=== PATIENT | female | born 1960 | race Caucasian/White ===

== ENCOUNTER → 2017-11-07 09:30 | Outpatient (CLI) | payer BC, SELFPAY ==
[2017-11-07 11:03] LABS: Protein, Urine (Random) 45.1 mg/dL (<11.9); Protein:Creat Ratio 646 mg/g CRE (0-200)
[2017-11-07 11:16] LABS: Magnesium 2.1 mg/dL (1.6-2.6)
[2017-11-07 11:30] LABS: PTHIN 96.7 pg/mL (18.4-80.1); Vitamin D,25 Hydroxy 36.9 ng/mL (29.95-100.01)
[2017-11-10 08:12] LABS: Sirolimus,Blood 7.3 ng/mL (3.0-20.0)
== END ==
PROVIDERS: Family Provider Family Medicine; PCP Family Medicine; Referring Provider Internal Medicine Nephrology; Visit Provider Internal Medicine Nephrology
DX: N18.4 Chronic kidney disease, stage 4 (severe) (principal); Z48.22 Encounter for aftercare following kidney transplant
CPT/HCPCS: 36415; 80195; 82306; 82570; 83735; 83970; 84156

== ENCOUNTER → 2017-12-19 08:19 | Outpatient (CLI) | payer BC, SELFPAY ==
[2017-12-19 09:48] LABS: Absolute Lymphocyte Count 1.02 X10^3/ul (0.83-4.51); Absolute Neutrophil Count 2.8 X10^3/uL (2.0-7.7); Basophil# 0.01 X10^3/uL; Basophil% 0.2 % (0-1); Eosinophil# 0.11 X10^3/uL; Eosinophils% 2.4 % (0-5); Hematocrit 36.6 % (37-47); Hemoglobin 11.3 g/dl (12.0-15.0); Lymphocyte # 1.02 X10^3/ul (4.0); Lymphocyte % 22.4 % (19-41); Mean Corp Hgb Conc 30.9 g/gl (32-36); Mean Corpuscular Hgb 25.9 pg (27.0-32.0); Mean Corpuscular Volume 83.8 fL (81-99); Mean Platelet Vol. 11.6 fl (6.2-12.0); Monocyte# 0.64 X10^3/uL; Neutrophil # 2.77 X10^3/uL (2.7-7.7); Neutrophil % 60.8 % (47-70); Platelet Count 168 K/mm3 (150-450); RBC Distribution Width CV 14.8 % (11.6-14.6); RBC Distribution Width SD 44.2 fl (35.1-43.9); Red Blood Count 4.37 M/mm3 (4.2-5.4); White Blood Count 4.6 K/mm3 (4.4-11.0)
[2017-12-19 09:51] LABS: POSITIVE COUNT NO; POSITIVE DIFFERENTIAL NO; POSITIVE MORPHOLOGY NO
[2017-12-19 10:24] LABS: ALB/GLOB Ratio 0.7 RATIO (0.9-2.4); AST(SGOT) 26 U/L (15-37); Alanine Aminotransfer ALT/SGPT 31 U/L (13-56); Albumin, Serum 3.4 g/dL (3.2-5.0); Alkaline Phosphatase 102 U/L (45-117); Anion Gap 10 (5-15); BUN 36 mg/dL (7-18); Calcium,Total 8.8 mg/dL (8.5-10.1); Chloride 108 mmol/L (98-107); Creatinine, Serum 2.76 mg/dL (0.55-1.02); EST Glomerular Filtration Rate 19 mL/min (>60); Est Glom Filt Rate - Afr Amer 23 mL/min (>60); Globulin 4.6 g/dL (2.2-4.2); Glucose 132 mg/dL (74-106); Potassium 4.4 mmol/L (3.5-5.1); Sodium Level 141 mmol/L (136-145); Uric Acid 5.9 mg/dL (2.6-6.0)
== END ==
PROVIDERS: Family Provider Family Medicine; PCP Family Medicine; Referring Provider Internal Medicine Nephrology; Visit Provider Internal Medicine Nephrology
DX: N18.4 Chronic kidney disease, stage 4 (severe) (principal); R60.0 Localized edema
CPT/HCPCS: 36415; 80053; 84550; 85025

== ENCOUNTER → 2018-03-17 08:13 | Outpatient (CLI) | payer BC, SELFPAY ==
[2017-01-20 15:31] VITALS: BMI 41.5
[2018-03-17 09:09] LABS: Absolute Lymphocyte Count 0.93 X10^3/ul (0.83-4.51); Absolute Neutrophil Count 1.9 X10^3/uL (2.0-7.7); Basophil# 0.01 X10^3/uL; Basophil% 0.3 % (0-1); Eosinophil# 0.14 X10^3/uL; Eosinophils% 4.3 % (0-5); Hematocrit 37.5 % (37-47); Hemoglobin 11.5 g/dl (12.0-15.0); Lymphocyte # 0.93 X10^3/ul (4.0); Lymphocyte % 28.4 % (19-41); Mean Corp Hgb Conc 30.7 g/gl (32-36); Mean Corpuscular Hgb 26.4 pg (27.0-32.0); Mean Platelet Vol. 10.6 fl (6.2-12.0); Monocyte# 0.32 X10^3/uL; Monocyte% 9.8 % (0-10); Neutrophil # 1.87 X10^3/uL (2.7-7.7); Neutrophil % 57.2 % (47-70); POSITIVE COUNT NO; POSITIVE DIFFERENTIAL NO; POSITIVE MORPHOLOGY NO; Platelet Count 143 K/mm3 (150-450); RBC Distribution Width SD 47.2 fl (35.1-43.9); Red Blood Count 4.36 M/mm3 (4.2-5.4); White Blood Count 3.3 K/mm3 (4.4-11.0)
[2018-03-17 09:44] LABS: ALB/GLOB Ratio 0.9 RATIO (0.9-2.4); AST(SGOT) 18 U/L (15-37); Alanine Aminotransfer ALT/SGPT 24 U/L (13-56); Albumin, Serum 3.4 g/dL (3.2-5.0); Alkaline Phosphatase 78 U/L (45-117); Anion Gap 7 (5-15); BUN 37 mg/dL (7-18); BUN/Creat Ratio 15.1 RATIO (10-20); Calcium,Total 8.7 mg/dL (8.5-10.1); Chloride 112 mmol/L (98-107); Creatinine, Serum 2.45 mg/dL (0.55-1.02); EST Glomerular Filtration Rate 22 mL/min (>60); Est Glom Filt Rate - Afr Amer 26 mL/min (>60); Globulin 3.9 g/dL (2.2-4.2); Glucose 104 mg/dL (74-106); Potassium 5.1 mmol/L (3.5-5.1); Protein, Total 7.3 g/dL (6.4-8.2); Sodium Level 144 mmol/L (136-145); Uric Acid 6.5 mg/dL (2.6-6.0)
[2018-03-20 08:49] LABS: Sirolimus,Blood 11.4 ng/mL (3.0-20.0)
== END ==
PROVIDERS: Family Provider Family Medicine; PCP Family Medicine; Referring Provider Internal Medicine Nephrology; Visit Provider Internal Medicine Nephrology
DX: N18.4 Chronic kidney disease, stage 4 (severe) (principal); R60.0 Localized edema; Z48.22 Encounter for aftercare following kidney transplant
CPT/HCPCS: 36415; 80053; 80195; 84550; 85025

== ENCOUNTER 2018-04-23 06:26 | Emergency (ER) | payer BC, SELFPAY ==
[2018-04-23 06:27] VITALS: BP 153/80; PULSE 70; RESP 18; TEMP 37.4; O2SAT 94; BMI 92.7
--- NOTE | 2018-04-23 06:54 | RAD_ITS ---
STUDY: X-RAY CHEST REASON FOR EXAM: Female, 57 years old. Fever since Monday with reactive airway disease and productive cough. TECHNIQUE: PA and lateral views of the chest. COMPARISON: January 20, 2017. FINDINGS: The lungs are expanded. There is interstitial thickening present in both lungs. There is no demonstrated pleural abnormality. Normal size heart. Normal mediastinum and reta. Normal visualized pulmonary arteries. There is atherosclerotic tortuosity of the aortic arch and descending thoracic aorta. Normal visualized thoracic spine. There is deformity of the posterolateral eighth rib probably related to old fracture. Surgical clips are visible in right upper quadrant. RAD/Chest PA and Lateral IMPRESSION: No radiographic evidence of acute cardiopulmonary disease. Electronically Signed: Emily Cowan MD at 9:00 EDT , Service support ,
--- NOTE | 2018-04-23 06:54 | ED.VISSUMM ---
- ER Visit Summary Date of Service: 04/23/18 Chief Complaint: Fever History of Present Illness: The patient is a 57 F who presents with a fever and cough that has been getting worse over the past 2 days. Patient states she is coughing up some yellow sputum. Patient states her fever at home was up to 102.1. Patient states it improved with Tylenol but then returned after couple hours. Patient admits to some pain across her chest that is worse with coughing. Patient denies any nausea or vomiting. Patient does admit to a headache. Patient has a past medical history of renal transplant in 1998. Patient still takes antirejection medications. Physical Examination: Vital signs are stable. Patient is afebrile here with a temperature 99.4. Patient is in no acute distress. Oral mucosa is pink and moist. Oropharynx is clear. Pupils are equal, round, and reactive to light bilaterally. Extraocular muscles are intact. Tympanic membranes are clear. Heart was regular rate and rhythm. Lungs showed expiratory rhonchi. There is good respiratory effort noted. Abdomen is soft. Bowel sounds are normal. There is no tenderness. Cranial nerves II through XII are intact. There are no focal motor or sensory deficits noted. The remaining physical exam is within normal limits. Test Results: CBC, basic metabolic profile, urinalysis, and chest x-ray were obtained. CBC was normal. Basic metabolic profile showed an elevated BUN and creatinine which are chronic for the patient. Urinalysis is pending. Chest x-ray does not show any evidence of pneumonia on my interpretation. Influenza swab was ordered and is pending as well. Emergency Department Course and Treatment: Patient was given a DuoNeb aerosol here. Patient was given a prescription for Zithromax. Care of the patient was turned over to the oncoming physician with results pending. Disposition: Likely discharge home Impression: Upper respiratory infection This note was generated with [employer] dictation software. It may contain incorrect words, spelling, and punctuation that were not noted in review of the chart prior to signing ED Disposition - Plan for ED Patient: Disposition: Home or Assisted Living Diagnosis: Upper respiratory infection Instructions: ED Upper Resp Infec Abx Tx Prescriptions: Azithromycin [Zithromax Z-Dom] 250 mg PO UD #1 box Referrals: Funmi Siu [Primary Care Provider] -
--- NOTE | 2018-04-23 06:59 | ED.DCSUM_ITS ---
- ER Visit Summary Date of Service: 04/23/18 Chief Complaint: Fever History of Present Illness: The patient is a 57 F who presents with a fever and cough that has been getting worse over the past 2 days. Patient states she is coughing up some yellow sputum. Patient states her fever at home was up to 102.1. Patient states it improved with Tylenol but then returned after couple hours. Patient admits to some pain across her chest that is worse with coughing. Patient denies any nausea or vomiting. Patient does admit to a headache. Patient has a past medical history of renal transplant in 1998. Patient still takes antirejection medications. Physical Examination: Vital signs are stable. Patient is afebrile here with a temperature 99.4. Patient is in no acute distress. Oral mucosa is pink and moist. Oropharynx is clear. Pupils are equal, round, and reactive to light b ilaterally. Extraocular muscles are intact. Tympanic membranes are clear. Heart was regular rate and rhythm. Lungs showed expiratory rhonchi. There is good respiratory effort noted. Abdomen is soft. Bowel sounds are normal. There is no tenderness. Cranial nerves II through XII are intact. There are no focal motor or sensory deficits noted. The remaining physical exam is within normal limits. Test Results: CBC, basic metabolic profile, urinalysis, and chest x-ray were obtained. CBC was normal. Basic metabolic profile showed an elevated BUN and creatinine which are chronic for the patient. Urinalysis is pending. Chest x- ray does not show any evidence of pneumonia on my interpretation. Influenza swab was ordered and is pending as well. Emergency Department Course and Treatment: Patient was given a DuoNeb aerosol here. Patient was given a prescription for Zithromax. Care of the patient was turned over to the oncoming physician with results pending. Disposition: Likely discharge home Impression: Upper respiratory infection This note was generated with [employer] dictation software. It may contain incorrect words, spelling, and punctuation that were not noted in review of the chart prior to signing ED Disposition - Plan for ED Patient: Disposition: Home or Assisted Living Diagnosis: Upper respiratory infection Instructions: ED Upper Resp Infec Abx Tx Prescriptions: Azithromycin [Zithromax Z-Dom] 250 mg PO UD #1 box Referrals: Funmi Siu [Primary Care Provider] -
[2018-04-23 07:09] VITALS: PULSE 78; RESP 18
[2018-04-23] MEDS: Ipratropium/Albuterol Sulfate 3 ML AMPUL.NEB INHALATION (07:09)
[2018-04-23 07:47] LABS: Absolute Lymphocyte Count 1.63 X10^3/ul (0.83-4.51); Absolute Neutrophil Count 2.9 X10^3/uL (2.0-7.7); Basophil# 0.01 X10^3/uL; Basophil% 0.2 % (0-1); Hematocrit 38.5 % (37-47); Hemoglobin 12.4 g/dl (12.0-15.0); Lymphocyte # 1.63 X10^3/ul (4.0); Lymphocyte % 31.2 % (19-41); Mean Corp Hgb Conc 32.2 g/gl (32-36); Mean Corpuscular Hgb 27.1 pg (27.0-32.0); Mean Corpuscular Volume 84.1 fL (81-99); Mean Platelet Vol. 11.1 fl (6.2-12.0); Monocyte# 0.72 X10^3/uL; Monocyte% 13.8 % (0-10); Neutrophil # 2.85 X10^3/uL (2.7-7.7); Neutrophil % 54.6 % (47-70); Platelet Count 138 K/mm3 (150-450); RBC Distribution Width CV 14.1 % (11.6-14.6); RBC Distribution Width SD 42.5 fl (35.1-43.9); Red Blood Count 4.58 M/mm3 (4.2-5.4); White Blood Count 5.2 K/mm3 (4.4-11.0)
[2018-04-23 07:50] LABS: POSITIVE COUNT NO; POSITIVE DIFFERENTIAL NO; POSITIVE MORPHOLOGY NO
[2018-04-23 07:57] LABS: Anion Gap 9 (5-15); BUN 49 mg/dL (7-18); BUN/Creat Ratio 17.3 RATIO (10-20); Calcium,Total 8.8 mg/dL (8.5-10.1); Chloride 107 mmol/L (98-107); Creatinine, Serum 2.84 mg/dL (0.55-1.02); EST Glomerular Filtration Rate 18 mL/min (>60); Est Glom Filt Rate - Afr Amer 22 mL/min (>60); Estimated Creatinine Clearance 18.87 ml/min; Glucose 110 mg/dL (74-106); Potassium 3.5 mmol/L (3.5-5.1); Sodium Level 135 mmol/L (136-145)
[2018-04-23 08:12] LABS: Mucous, Urine 0 SEEN /hpf (<or=2+); Squamous Epithelial Cells - UA 0 SEEN /hpf (5-10)
[2018-04-23 08:13] LABS: Color, Urine Yellow (Yellow); Glucose, Dipstick Normal (Normal); Ketone-Dipstick Negative (Negative); Leukocyte Esterase-Dipstick 500 /ul (Negative); Nitrite-Dipstick Positive (Negative); Occult Blood-Urine 25 /ul (Negative); Protein-Dipstick 30 mg/dl (Negative); Urine Bilirubin Dipstick Negative (Negative); Urine Clarity Sl. Cloudy (Clear); Urine Urobilinogen Normal (Normal)
[2018-04-23 08:21] LABS: Bacteria 1+ /hpf (None Seen); Red Blood Cells-Urine 0-5 SEEN /hpf (0-5); White Blood Cells 25-50 SEEN /hpf (0-5)
--- NOTE | 2018-04-23 08:49 | ED.VISSUMM ---
- ER Visit Summary Date of Service: 04/23/18 Chief Complaint: [Addendum to initial dictation by Dr. Isac Prakash] History of Present Illness: The patient is a 57 F [resented with fever times 3 days and cough that started yesterday. Patient seen in the emergency department and had blood work that was unremarkable. Patient is a renal transplant patient and is immunosuppressed. Patient care turned over to me in the morning awaiting final results of chest x-ray and urinalysis. It was felt by ER doctor that chest x-ray was unremarkable.] Physical Examination: [HEENT-PERRLA, EOMI. Cranial nerves II through XII grossly intact. TMs clear. Mucous membranes moist. No adenopathy. Cardiovascular-regular rate and rhythm without murmur or ectopy Lungs-clear to auscultation, chest wall stable without crepitus or subcu emphysema Abdomen-normoactive bowel sounds, soft, nontender, no rebound or rigidity, no peritoneal signs. Extremities-intact ?4, normal range of motion, normal pulses, atraumatic] Test Results: [Influenza screen was positive for influenza A. Urinalysis was positive for nitrites, leukocyte esterase, and 25-50 WBCs.] Emergency Department Course and Treatment: [Patient was started on Tamiflu as well as given 1 g Rocephin IV.] Treatment Plan: [Patient will be given a prescription for Tamiflu as well as Bactrim and I will discontinue the Zithromax at the previous ER physician wrote for.] Disposition: [Discharged home in stable condition] Impression: [Influenza A Urinary tract infection] This note was generated with [employer] dictation software. It may contain incorrect words, spelling, and punctuation that were not noted in review of the chart prior to signing ED Disposition - Plan for ED Patient: Disposition: Home or Assisted Living Diagnosis: Upper respiratory infection Instructions: ED Upper Resp Infec Abx Tx Prescriptions: Azithromycin [Zithromax Z-Dom] 250 mg PO UD #1 box Referrals: Funmi Siu [Primary Care Provider] -
--- NOTE | 2018-04-23 08:53 | ED.DEP ---
ED Disposition - Plan for ED Patient: Disposition: Home or Assisted Living Diagnosis: Upper respiratory infection Instructions: ED Upper Resp Infec Abx Tx, ED Flu, ED UTI Cystitis Female Prescriptions: Azithromycin [Zithromax Z-Dom] 250 mg PO UD #1 box Oseltamivir Phosphate [Tamiflu] 75 mg PO BID #9 cap Smz/Tmp Ds [Bactrim Ds] 1 tab PO BID #14 tab Referrals: Funmi Siu [Primary Care Provider] - 3-5 Days
[2018-04-23] MEDS: Ceftriaxone 1 GM/50 ML BAG IV (09:15)
[2018-04-23] MEDS: Oseltamivir Phosphate 75 MG Capsule PO (09:15)
[2018-04-23 09:17] VITALS: BP 150/75; PULSE 76; RESP 24; O2SAT 94
== END 2018-04-23 10:23 | disposition home or self-care (01) ==
PROVIDERS: Emergency Provider Emergency Medicine; Family Provider Family Medicine; PCP Family Medicine
DX: J09.X2 Influenza due to identified novel influenza A virus with other respiratory manifestations (principal); N39.0 Urinary tract infection, site not specified; J06.9 Acute upper respiratory infection, unspecified; Z94.0 Kidney transplant status; E66.9 Obesity, unspecified; Z79.899 Other long term (current) drug therapy
CPT/HCPCS: 71046; 80048; 81001; 85025; 87086; 87088; 87186; 87804; 94640; 96365; 99284; J7030; J7050; A4216

== ENCOUNTER → 2018-09-11 | Outpatient (CLI) | payer BC, SELFPAY ==
[2018-09-11 08:58] LABS: Absolute Lymphocyte Count 0.91 X10^3/uL (0.83-4.51); Absolute Neutrophil Count 2.1 X10^3/uL (2.0-7.7); Basophil# 0.01 X10^3/uL; Basophil% 0.3 % (0-1); Eosinophil# 0.13 X10^3/uL; Eosinophils% 3.7 % (0-5); Hematocrit 36.5 % (37-47); Hemoglobin 11.2 g/dL (12.0-15.0); Lymphocyte # 0.91 X10^3/ul (4.0); Lymphocyte % 26.2 % (19-41); Mean Corp Hgb Conc 30.7 g/dL (32-36); Mean Corpuscular Hgb 25.9 pg (27.0-32.0); Mean Corpuscular Volume 84.5 fL (81-99); Mean Platelet Vol. 11.8 fl (6.2-12.0); Monocyte# 0.31 X10^3/uL; Monocyte% 8.9 % (0-10); NRBC Flagged by Analyzer 0 % (0-5); Neutrophil % 60.6 % (47-70); Platelet Count 162 K/mm3 (150-450); RBC Distribution Width CV 14.6 % (11.6-14.6); RBC Distribution Width SD 44.9 fl (35.1-43.9); Red Blood Count 4.32 M/mm3 (4.2-5.4); White Blood Count 3.5 K/mm3 (4.4-11.0)
[2018-09-11 09:13] LABS: Protein, Urine (Random) 46.5 mg/dL (<11.9)
[2018-09-11 09:30] LABS: ALB/GLOB Ratio 0.8 RATIO (0.9-2.4); AST(SGOT) 15 U/L (15-37); Alanine Aminotransfer ALT/SGPT 18 U/L (13-56); Albumin, Serum 3.6 g/dL (3.2-5.0); Alkaline Phosphatase 91 U/L (45-117); Anion Gap 9 (5-15); BUN 44 mg/dL (7-18); BUN/Creat Ratio 15.7 RATIO (10-20); Calcium,Total 9.2 mg/dL (8.5-10.1); Chloride 111 mmol/L (98-107); EST Glomerular Filtration Rate 18 mL/min (>60); Est Glom Filt Rate - Afr Amer 22 mL/min (>60); Globulin 4.3 g/dL (2.2-4.2); Glucose 102 mg/dL (74-106); Magnesium 2.3 mg/dL (1.6-2.6); Potassium 4.1 mmol/L (3.5-5.1); Protein, Total 7.9 g/dL (6.4-8.2); Sodium Level 145 mmol/L (136-145)
[2018-09-11 09:42] LABS: Vitamin D,25 Hydroxy 40.5 ng/mL (29.95-100.01)
[2018-09-11 10:10] LABS: PTHIN 91.2 pg/mL (18.4-80.1)
[2018-09-13 15:56] LABS: Sirolimus,Blood 10.6 ng/mL (3.0-20.0)
== END | disposition home or self-care (01) ==
PROVIDERS: Family Provider Family Medicine; PCP Family Medicine; Referring Provider Internal Medicine Nephrology; Visit Provider Internal Medicine Nephrology
DX: N18.4 Chronic kidney disease, stage 4 (severe) (principal); J18.9 Pneumonia, unspecified organism; Z48.22 Encounter for aftercare following kidney transplant
CPT/HCPCS: 36415; 80053; 80195; 82306; 82570; 83735; 83970; 84100; 84156; 85025

== ENCOUNTER → 2019-02-26 07:14 | Outpatient (CLI) | payer BC, SELFPAY ==
[2019-02-26 07:48] LABS: Absolute Lymphocyte Count 0.87 X10^3/uL (0.83-4.51); Absolute Neutrophil Count 2.5 X10^3/uL (2.0-7.7); Basophil# 0.02 X10^3/uL; Basophil% 0.5 % (0-1); Lymphocyte # 0.87 X10^3/ul (4.0); Lymphocyte % 21.9 % (19-41); Mean Corp Hgb Conc 30.6 g/dL (32-36); Mean Corpuscular Hgb 25.5 pg (27.0-32.0); Mean Corpuscular Volume 83.3 fL (81-99); Mean Platelet Vol. 11.1 fl (6.2-12.0); Monocyte# 0.35 X10^3/uL; Monocyte% 8.8 % (0-10); NRBC Flagged by Analyzer 0 % (0-5); Neutrophil # 2.52 X10^3/uL (2.7-7.7); Neutrophil % 63.5 % (47-70); Platelet Count 171 K/mm3 (150-450); RBC Distribution Width CV 15.7 % (11.6-14.6); RBC Distribution Width SD 47.4 fl (35.1-43.9); Red Blood Count 4.32 M/mm3 (4.2-5.4)
[2019-02-26 08:08] LABS: Protein, Urine (Random) 62.7 mg/dL (<11.9)
[2019-02-26 08:24] LABS: ALB/GLOB Ratio 0.8 RATIO (0.9-2.4); AST(SGOT) 14 U/L (15-37); Alanine Aminotransfer ALT/SGPT 20 U/L (13-56); Albumin, Serum 3.4 g/dL (3.2-5.0); Alkaline Phosphatase 79 U/L (45-117); Anion Gap 4 (5-15); BUN 42 mg/dL (7-18); BUN/Creat Ratio 13.4 RATIO (10-20); Calcium,Total 8.5 mg/dL (8.5-10.1); Chloride 110 mmol/L (98-107); Creatinine, Serum 3.13 mg/dL (0.55-1.02); EST Glomerular Filtration Rate 16 mL/min (>60); Est Glom Filt Rate - Afr Amer 20 mL/min (>60); Ferritin 50 ng/mL (8-252); Globulin 4.1 g/dL (2.2-4.2); Glucose 114 mg/dL (74-106); Iron 42 ug/dL (50-170); Iron Binding Capacity,Total 246 ug/dL (250-450); Magnesium 2.4 mg/dL (1.6-2.6); PERCENT IRON SATURATION 17.1 % (15.0-55.0); Potassium 3.8 mmol/L (3.5-5.1); Protein, Total 7.5 g/dL (6.4-8.2); Sodium Level 140 mmol/L (136-145)
[2019-02-26 08:27] LABS: PTHIN 174.9 pg/mL (18.4-80.1); Vitamin D,25 Hydroxy 46.6 ng/mL (29.95-100.01)
[2019-02-27 20:54] LABS: Sirolimus,Blood 11.9 ng/mL (3.0-20.0)
== END ==
PROVIDERS: Family Provider Family Medicine; PCP Family Medicine; Referring Provider Internal Medicine Nephrology; Visit Provider Internal Medicine Nephrology
DX: N18.4 Chronic kidney disease, stage 4 (severe) (principal); D64.9 Anemia, unspecified; Z48.22 Encounter for aftercare following kidney transplant
CPT/HCPCS: 36415; 80053; 80195; 82306; 82570; 82728; 83540; 83550; 83735; 83970; 84156; 85025

== ENCOUNTER → 2019-05-14 09:06 | Outpatient (CLI) | payer BC, SELFPAY ==
[2019-05-14 10:23] LABS: Absolute Neutrophil Count 2.8 X10^3/uL (2.0-7.7); Basophil# 0.02 X10^3/uL; Basophil% 0.5 % (0-1); Eosinophil# 0.07 X10^3/uL; Eosinophils% 1.7 % (0-5); Hematocrit 36.7 % (37-47); Hemoglobin 11.7 g/dL (12.0-15.0); Lymphocyte % 21.8 % (19-41); Mean Corp Hgb Conc 31.9 g/dL (32-36); Mean Corpuscular Hgb 27.1 pg (27.0-32.0); Mean Platelet Vol. 10.9 fl (6.2-12.0); Monocyte# 0.35 X10^3/uL; Monocyte% 8.5 % (0-10); NRBC Flagged by Analyzer 0 % (0-5); Neutrophil # 2.77 X10^3/uL (2.7-7.7); Neutrophil % 67.3 % (47-70); Platelet Count 154 K/mm3 (150-450); RBC Distribution Width CV 15.2 % (11.6-14.6); Red Blood Count 4.32 M/mm3 (4.2-5.4); White Blood Count 4.1 K/mm3 (4.4-11.0)
[2019-05-14 10:47] LABS: ALB/GLOB Ratio 0.9 RATIO (0.9-2.4); AST(SGOT) 16 U/L (15-37); Alanine Aminotransfer ALT/SGPT 17 U/L (13-56); Albumin, Serum 3.8 g/dL (3.2-5.0); Alkaline Phosphatase 81 U/L (45-117); Anion Gap 6 (5-15); BUN 43 mg/dL (7-18); BUN/Creat Ratio 13.2 RATIO (10-20); Calcium,Total 9.2 mg/dL (8.5-10.1); Chloride 106 mmol/L (98-107); Creatinine, Serum 3.25 mg/dL (0.55-1.02); EST Glomerular Filtration Rate 16 mL/min (>60); Est Glom Filt Rate - Afr Amer 19 mL/min (>60); Globulin 4.2 g/dL (2.2-4.2); Glucose 115 mg/dL (74-106); Magnesium 2.3 mg/dL (1.6-2.6); Phosphorus 3.3 mg/dL (2.5-4.9); Sodium Level 140 mmol/L (136-145)
== END ==
PROVIDERS: Referring Provider Internal Medicine Nephrology; Visit Provider Internal Medicine Nephrology
DX: Z48.22 Encounter for aftercare following kidney transplant (principal)
CPT/HCPCS: 36415; 80053; 83735; 84100; 85025

== ENCOUNTER → 2019-06-18 08:03 | Outpatient (CLI) | payer BC, SELFPAY ==
[2019-06-18 08:58] LABS: Absolute Lymphocyte Count 0.92 X10^3/uL (0.83-4.51); Absolute Neutrophil Count 2.8 X10^3/uL (2.0-7.7); Basophil# 0.01 X10^3/uL; Basophil% 0.2 % (0-1); Eosinophil# 0.13 X10^3/uL; Eosinophils% 3.1 % (0-5); Hematocrit 35.1 % (37-47); Hemoglobin 10.7 g/dL (12.0-15.0); Lymphocyte # 0.92 X10^3/ul (4.0); Lymphocyte % 21.8 % (19-41); Mean Corp Hgb Conc 30.5 g/dL (32-36); Mean Corpuscular Hgb 26.6 pg (27.0-32.0); Mean Corpuscular Volume 87.3 fL (81-99); Mean Platelet Vol. 11.2 fl (6.2-12.0); Monocyte# 0.39 X10^3/uL; Monocyte% 9.2 % (0-10); NRBC Flagged by Analyzer 0 % (0-5); Neutrophil # 2.76 X10^3/uL (2.7-7.7); Neutrophil % 65.5 % (47-70); Platelet Count 146 K/mm3 (150-450); RBC Distribution Width CV 15.3 % (11.6-14.6); RBC Distribution Width SD 48.7 fl (35.1-43.9); Red Blood Count 4.02 M/mm3 (4.2-5.4); White Blood Count 4.2 K/mm3 (4.4-11.0)
[2019-06-18 09:25] LABS: PTHIN 174.6 pg/mL (18.4-80.1)
[2019-06-18 09:29] LABS: ALB/GLOB Ratio 0.9 RATIO (0.9-2.4); AST(SGOT) 16 U/L (15-37); Alanine Aminotransfer ALT/SGPT 18 U/L (13-56); Albumin, Serum 3.5 g/dL (3.2-5.0); Alkaline Phosphatase 80 U/L (45-117); Anion Gap 3 (5-15); BUN 39 mg/dL (7-18); BUN/Creat Ratio 13.7 RATIO (10-20); Calcium,Total 8.6 mg/dL (8.5-10.1); Chloride 115 mmol/L (98-107); Creatinine, Serum 2.85 mg/dL (0.55-1.02); EST Glomerular Filtration Rate 18 mL/min (>60); Est Glom Filt Rate - Afr Amer 22 mL/min (>60); Glucose 98 mg/dL (74-106); Magnesium 2.4 mg/dL (1.6-2.6); Phosphorus 3.3 mg/dL (2.5-4.9); Potassium 4.5 mmol/L (3.5-5.1); Protein, Total 7.5 g/dL (6.4-8.2); Sodium Level 143 mmol/L (136-145)
[2019-06-18 09:30] LABS: Vitamin D,25 Hydroxy 50.8 ng/mL
[2019-06-18 10:12] LABS: Protein, Urine (Random) 36.9 mg/dL (<11.9); Protein:Creat Ratio 501 mg/g CRE (0-200)
[2019-06-21 00:41] LABS: Sirolimus,Blood 10.7 ng/mL (3.0-20.0)
== END ==
PROVIDERS: PCP Internal Medicine Nephrology; Referring Provider Internal Medicine Nephrology; Visit Provider Internal Medicine Nephrology
DX: N18.4 Chronic kidney disease, stage 4 (severe) (principal); Z48.22 Encounter for aftercare following kidney transplant
CPT/HCPCS: 36415; 80053; 80195; 82306; 82570; 83735; 83970; 84100; 84156; 85025

== ENCOUNTER → 2019-08-23 08:26 | Outpatient (CLI) | payer BC, SELFPAY ==
[2019-08-23 08:53] LABS: Absolute Lymphocyte Count 1.36 X10^3/uL (0.83-4.51); Absolute Neutrophil Count 4.2 X10^3/uL (2.0-7.7); Basophil# 0.01 X10^3/uL; Basophil% 0.2 % (0-1); Eosinophil# 0.15 X10^3/uL; Eosinophils% 2.4 % (0-5); Hematocrit 35.6 % (37-47); Hemoglobin 11.1 g/dL (12.0-15.0); Lymphocyte # 1.36 X10^3/ul (4.0); Lymphocyte % 21.6 % (19-41); Mean Corp Hgb Conc 31.2 g/dL (32-36); Mean Corpuscular Hgb 26.7 pg (27.0-32.0); Mean Corpuscular Volume 85.8 fL (81-99); Mean Platelet Vol. 11.2 fl (6.2-12.0); Monocyte% 9.5 % (0-10); NRBC Flagged by Analyzer 0 % (0-5); Neutrophil # 4.17 X10^3/uL (2.7-7.7); Platelet Count 177 K/mm3 (150-450); RBC Distribution Width CV 15.4 % (11.6-14.6); RBC Distribution Width SD 47.2 fl (35.1-43.9); Red Blood Count 4.15 M/mm3 (4.2-5.4); White Blood Count 6.3 K/mm3 (4.4-11.0)
[2019-08-23 09:22] LABS: ALB/GLOB Ratio 0.8 RATIO (0.9-2.4); AST(SGOT) 17 U/L (15-37); Alanine Aminotransfer ALT/SGPT 31 U/L (13-56); Albumin, Serum 3.3 g/dL (3.2-5.0); Alkaline Phosphatase 87 U/L (45-117); Anion Gap 7 (5-15); BUN 28 mg/dL (7-18); BUN/Creat Ratio 9.8 RATIO (10-20); Calcium,Total 8.7 mg/dL (8.5-10.1); Chloride 107 mmol/L (98-107); Creatinine, Serum 2.87 mg/dL (0.55-1.02); EST Glomerular Filtration Rate 18 mL/min (>60); Est Glom Filt Rate - Afr Amer 22 mL/min (>60); Globulin 4.2 g/dL (2.2-4.2); Glucose 155 mg/dL (74-106); Magnesium 2.2 mg/dL (1.6-2.6); Phosphorus 2.4 mg/dL (2.5-4.9); Potassium 3.7 mmol/L (3.5-5.1); Protein, Total 7.5 g/dL (6.4-8.2); Sodium Level 140 mmol/L (136-145); Uric Acid 7.7 mg/dL (2.6-6.0)
[2019-08-23 09:32] LABS: PTHIN 131.9 pg/mL (18.4-80.1)
[2019-08-23 09:49] LABS: Vitamin D,25 Hydroxy 53.7 ng/mL
[2019-08-27 00:36] LABS: Sirolimus,Blood 22.6 ng/mL (3.0-20.0)
== END ==
PROVIDERS: PCP Family Medicine; Referring Provider Internal Medicine Nephrology; Visit Provider Internal Medicine Nephrology
DX: Z48.22 Encounter for aftercare following kidney transplant (principal); N18.4 Chronic kidney disease, stage 4 (severe); E79.0 Hyperuricemia without signs of inflammatory arthritis and tophaceous disease
CPT/HCPCS: 36415; 80053; 80195; 82306; 83735; 83970; 84100; 84550; 85025

== ENCOUNTER 2019-10-24 07:56 | Emergency (ER) | payer OTHER, BC, SELFPAY ==
[2019-10-24 07:57] VITALS: BP 150/79; PULSE 65; RESP 16; TEMP 36.8; O2SAT 96; BMI 42.9
--- NOTE | 2019-10-24 08:03 | ED.VIS.GEN ---
History of Present Illness Chief Complaint: Fall Informant: Patient Onset: Today Context: Sudden Onset Timing: Continuous Current Severity: Moderate Maximum Severity: Severe Narrative: The patient is a 59-year-old female who is right-hand dominant that presents to the emergency department after mechanical fall. 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 She tripped over a cord and fell forward. She caught herself with an outstretched right hand, and then landed on her left hip and knee. She did not strike her head. She denies loss of consciousness. She states the bulk of her pain is in her right wrist. The patient does have history of prior kidney transplant and is on Rapamune. She denies any recent infectious symptoms. Prior similar symptoms: No Recent Illness/Hospitalization: No Past Medical History - Allergies and Home Meds Allergies/Adverse Reactions: Allergies venlafaxine HCl [From Effexor] Adverse Reaction (Verified 10/24/19 07:57) Other Primary Care Physician: Lior Garber DO [STAFF PHYSICIAN] - 3-5 Days Prior records reviewed: Yes Past Medical History: - - Prior kidney transplant, depression Surgical History: noncontributory Smoking Status: Never smoker Review of Systems General: Denies: Chills, Fever, Sweats Eyes: Denies: Visual changes - bilaterally, Diplopia ENT: Denies: Rhinorrhea, Sore throat Cardiovascular: Denies: Chest pain, Palpitations Respiratory: Denies: Dyspnea, Cough, Dyspnea on exertion Gastrointestinal: Denies: Abdominal pain, Nausea, Vomiting, Diarrhea, Melena, Hematochezia Genitourinary: Denies: Dysuria, Hematuria, Frequency Musculoskeletal: Denies: Back pain, Extremity Pain Skin: Denies: Rash, Wounds Neurological: Denies: Headache, Weakness, Numbness Physical Exam Inital Vital Signs reviewed: Yes General: Well nourished, Well developed, No Acute Distress Head: Normocephalic, Atraumatic Eyes: Perrl, EOMI ENT: Moist mucous membranes, No rhinorrhea Neck: Supple, Nontender Cardiovascular: Regular rate, Regular rhythm, No murmurs Respiratory: No distress, CTA bilaterally, Chest nontender Abdomen: Soft, Nontender, Nondistended, Normal bowel sounds Back: Nontender, Normal Inspection Extremities: Tenderness - Patient is tender on the dorsum of the right wrist overlying the distal radius into the scaphoid. Pulses are normal. Anterior interosseous, posterior interosseous, ulnar nerve are preserved. There is small ecchymosis of the left knee, but extension is preserved. No gross laxity. Tenderness to palpation of left hip. Normal pulses in the lower extremities. Skin: Normal color, No rash Neurological: Alert, Oriented x3, Cranial nerves II-XII grossly intact, Normal Strength, Normal Sensation Psychological: Normal affect, Normal Mood Diagnostic/Tx/Re-eval Clinical Impression(s) from Imaging Studies Hand X-Ray 10/24/19 08:30 IMPRESSION: Nondisplaced transverse fracture of the distal radial metaphysis. Flexion deformity of the distal interphalangeal joints. Soft tissue swelling. Electronically Signed: Kolton Gilmore, at 8:48 EDT , Service support , Hip/Pelvis X-Ray 10/24/19 08:30 IMPRESSION: Mild degree of osteophytosis of the left hip joint and possible calcific tendinitis overlying the left greater trochanter. Electronically Signed: Kolton Gilmore at 8:51 EDT , Service support , Knee X-Ray 10/24/19 08:30 IMPRESSION: Tiny joint effusion. Infrapatellar soft tissue swelling. Electronically Signed: Kolton Gilmore at 8:52 EDT , Service support , Wrist X-Ray 10/24/19 08:30 IMPRESSION: Nondisplaced comminuted transverse fracture of the distal radial metaphysis. Soft tissue swelling. Electronically Signed: Kolton Gilmore at 8:50 EDT , Service support , - Medical Decision Making The patient presents after mechanical fall. She did not strike her head or lose consciousness. Her wrist is neurovascularly intact. There is no skin tenting. Plain films were obtained of the wrist, hip, hand, and knee. Wrist shows impacted nondisplaced distal radius fracture. Rest of imaging was unremarkable for fracture dislocation. The patient was placed in a custom AP Ortho-Glass wrist splint. She is given a sling. This was a work injury. My suspicion is given the intra-articular extension she may require surgery, she will be given outpatient orthopedic evaluation. She also given a short course of analgesics and will be discharged home. Impression 1. Mechanical fall 2. Closed distal radius fracture right 3. Left hip contusion 4. Left knee contusion 5. Splint by ED physician ED Disposition - Plan for ED Patient: Instructions: ED Fx Colles Wrist No Redu Requ Prescriptions: Oxycodone HCl/Acetaminophen [Percocet 5/325] 1 tab PO Q6H PRN PRN 3 Days #12 tab PRN Reason: Pain Prescription Printed Referrals: Lior Garber DO [STAFF PHYSICIAN] - 3-5 Days
[2019-10-24] MEDS: Morphine 4 MG/ML Syringe IV (08:10)
[2019-10-24] MEDS: Ondansetron 4 MG/2 ML Vial IV (08:10)
--- NOTE | 2019-10-24 08:30 | RAD_ITS ---
STUDY: X-RAY - RIGHT HAND REASON FOR EXAM: Female, 59 years old. FALL, PAIN TECHNIQUE: 3 view(s) of the hand. COMPARISON: None. FINDINGS: Nondisplaced transverse fracture of the distal radial metaphysis. Normal distal radioulnar joint. Normal visualized carpal bones. Normal carpal articulations Normal carpometacarpal articulation of the thumb. Normal second through fifth carpometacarpal joints. Normal metacarpi. Normal metacarpophalangeal joint of the thumb. Normal interphalangeal joint of the thumb. Normal proximal and distal phalanges of the thumb. Normal metacarpophalangeal joints of the second through fifth fingers. There is diffuse articular joint space narrowing of the proximal and distal interphalangeal joints of the second through fifth fingers, but without erosive changes or periarticular soft tissue swelling. Normal phalanges of the second through fifth fingers. Flexion deformity at the distal interphalangeal joints. Soft tissue swelling RAD/Hand Min 3 Views IMPRESSION: Nondisplaced transverse fracture of the distal radial metaphysis. Flexion deformity of the distal interphalangeal joints. Soft tissue swelling. Electronically Signed: Kolton Gilmore, at 8:48 EDT , Service support ,
--- NOTE | 2019-10-24 08:30 | RAD_ITS ---
STUDY: X-RAY - PELVIS AND LEFT HIP REASON FOR EXAM: Female, 59 years old. FALL, PAIN TECHNIQUE: 3 views of the pelvis and hip. COMPARISON: None. FINDINGS: There is a non-specific bowel gas pattern. There are multiple calcified phleboliths. Normal bilateral iliac wings, sacroiliac joints and visualized sacrum. Normal bilateral superior and inferior pubic rami. Normal pubic symphysis. Normal bilateral ischial tuberosities. Normal visualized femoral head. Normal acetabulum. There is mild articular joint space narrowing of the hip. 8mm ossification overlying the left greater trochanter. This may represent calcific tendinitis. RAD/HIP, UNI W/ Pelvis 2-3 Views IMPRESSION: Mild degree of osteophytosis of the left hip joint and possible calcific tendinitis overlying the left greater trochanter. Electronically Signed: Kolton Gilmore, at 8:51 EDT , Service support ,
--- NOTE | 2019-10-24 08:30 | RAD_ITS ---
STUDY: X-RAY - LEFT KNEE REASON FOR EXAM: Female, 59 years old. FALL, PAIN TECHNIQUE: 4 view(s) of the knee. COMPARISON: None. FINDINGS: Normal visualized distal femur. Normal visualized proximal tibia and fibula. Normal proximal tibiofibular articulation. Normal medial femorotibial compartment. Normal lateral femorotibial compartment. Normal patellofemoral articulation. Tiny joint effusion. Infrapatellar soft tissue swelling. RAD/Knee 4 or More Views IMPRESSION: Tiny joint effusion. Infrapatellar soft tissue swelling. Electronically Signed: Kolton Gilmore, at 8:52 EDT , Service support ,
--- NOTE | 2019-10-24 08:30 | RAD_ITS ---
STUDY: X-RAY - RIGHT WRIST REASON FOR EXAM: Female, 59 years old. FALL, PAIN TECHNIQUE: 3 view(s) of the wrist were obtained. COMPARISON: None. FINDINGS: Nondisplaced transverse fracture of the distal radial metaphysis. Normal radiocarpal articulation. Normal distal radioulnar articulation. Normal carpal bones. Normal carpal articulations. There is degenerative arthrosis of the carpometacarpal articulation of the thumb. Normal second through fifth carpometacarpal articulations. Normal visualized metacarpal bones. Soft tissue swelling. RAD/Wrist min 3 Views IMPRESSION: Nondisplaced comminuted transverse fracture of the distal radial metaphysis. Soft tissue swelling. Electronically Signed: Kolton Gilmore, at 8:50 EDT , Service support ,
[2019-10-24] MEDS: HYDROmorphone 1 MG/ML Syringe IV (08:49)
== END 2019-10-24 09:45 | disposition home or self-care (01) ==
LOC: ED 08:51
PROVIDERS: Emergency Provider Emergency Medicine; PCP Family Medicine
DX: S52.501A Unspecified fracture of the lower end of right radius, initial encounter for closed fracture (principal); S70.02XA Contusion of left hip, initial encounter; S80.02XA Contusion of left knee, initial encounter; W18.09XA Striking against other object with subsequent fall, initial encounter; Y93.9 Activity, unspecified; Y92.129 Unspecified place in nursing home as the place of occurrence of the external cause; F32.9 Major depressive disorder, single episode, unspecified; Z94.0 Kidney transplant status; Z79.899 Other long term (current) drug therapy
CPT/HCPCS: 29125; 73110; 73130; 73502; 73564; 96374; 96375; 99285; A4216; J2405

== ENCOUNTER → 2019-11-19 09:55 | Outpatient (CLI) | payer BC, SELFPAY ==
[2019-10-24 07:57] VITALS: BMI 42.9
[2019-11-19 10:44] LABS: Protein, Urine (Random) 52.8 mg/dL (<11.9); Protein:Creat Ratio 642 mg/g CRE (0-200)
[2019-11-19 11:02] LABS: ALB/GLOB Ratio 0.7 RATIO (0.9-2.4); AST(SGOT) 9 U/L (15-37); Alanine Aminotransfer ALT/SGPT 14 U/L (13-56); Albumin, Serum 3.3 g/dL (3.2-5.0); Alkaline Phosphatase 91 U/L (45-117); Anion Gap 6 (5-15); BUN 46 mg/dL (7-18); BUN/Creat Ratio 14.5 RATIO (10-20); Calcium,Total 9.1 mg/dL (8.5-10.1); Chloride 110 mmol/L (98-107); Creatinine, Serum 3.17 mg/dL (0.55-1.02); EST Glomerular Filtration Rate 16 mL/min (>60); Est Glom Filt Rate - Afr Amer 19 mL/min (>60); Ferritin 81 ng/mL (8-252); Globulin 4.5 g/dL (2.2-4.2); Glucose 110 mg/dL (74-106); Iron 54 ug/dL (50-170); Iron Binding Capacity,Total 220 ug/dL (250-450); PERCENT IRON SATURATION 24.5 % (15.0-55.0); Protein, Total 7.8 g/dL (6.4-8.2); Sodium Level 142 mmol/L (136-145); Uric Acid 7.4 mg/dL (2.6-6.0)
[2019-11-20 08:19] LABS: Vitamin D,25 Hydroxy 53.2 ng/mL
== END ==
PROVIDERS: PCP Family Medicine; Referring Provider Internal Medicine Nephrology; Visit Provider Internal Medicine Nephrology
DX: Z48.22 Encounter for aftercare following kidney transplant (principal); E79.0 Hyperuricemia without signs of inflammatory arthritis and tophaceous disease; N18.4 Chronic kidney disease, stage 4 (severe)
CPT/HCPCS: 36415; 80053; 82306; 82570; 82728; 83540; 83550; 83970; 84156; 84550

== ENCOUNTER → 2020-01-15 06:48 | Outpatient (CLI) | payer BC, SELFPAY ==
[2020-01-15 06:53] LABS: Mucous, Urine 0 SEEN /hpf (<or=2+)
[2020-01-15 07:27] LABS: Absolute Lymphocyte Count 0.85 X10^3/uL (0.83-4.51); Absolute Neutrophil Count 3.4 X10^3/uL (2.0-7.7); Basophil# 0.02 X10^3/uL; Basophil% 0.4 % (0-1); Eosinophil# 0.12 X10^3/uL; Eosinophils% 2.5 % (0-5); Hematocrit 34.4 % (37-47); Hemoglobin 10.5 g/dL (12.0-15.0); Lymphocyte # 0.85 X10^3/ul (4.0); Lymphocyte % 17.8 % (19-41); Mean Corp Hgb Conc 30.5 g/dL (32-36); Mean Corpuscular Hgb 25.9 pg (27.0-32.0); Mean Corpuscular Volume 84.9 fL (81-99); Mean Platelet Vol. 11.7 fl (6.2-12.0); Monocyte# 0.38 X10^3/uL; NRBC Flagged by Analyzer 0 % (0-5); Neutrophil # 3.38 X10^3/uL (2.7-7.7); Neutrophil % 70.9 % (47-70); Platelet Count 169 K/mm3 (150-450); RBC Distribution Width SD 46.7 fl (35.1-43.9); Red Blood Count 4.05 M/mm3 (4.2-5.4); White Blood Count 4.8 K/mm3 (4.4-11.0)
[2020-01-15 07:47] LABS: Protein, Urine (Random) 50.8 mg/dL (<11.9); Protein:Creat Ratio 522 mg/g CRE (0-200)
[2020-01-15 07:52] LABS: Color, Urine Yellow (Yellow); Glucose, Dipstick Normal (Normal); Ketone-Dipstick Negative (Negative); Leukocyte Esterase-Dipstick 500 /ul (Negative); Nitrite-Dipstick Positive (Negative); Occult Blood-Urine 25 /ul (Negative); Protein-Dipstick 30 mg/dl (Negative); Specific Gravity, Urine 1.015 (1.002-1.030); Urine Bilirubin Dipstick Negative (Negative); Urine Clarity Sl. Cloudy (Clear); Urine Urobilinogen Normal (Normal)
[2020-01-15 08:05] LABS: PTHIN 103.7 pg/mL (18.4-80.1)
[2020-01-15 08:08] LABS: ALB/GLOB Ratio 0.8 RATIO (0.9-2.4); AST(SGOT) 14 U/L (15-37); Alanine Aminotransfer ALT/SGPT 22 U/L (13-56); Albumin, Serum 3.5 g/dL (3.2-5.0); Alkaline Phosphatase 115 U/L (45-117); Anion Gap 8 (5-15); BUN 45 mg/dL (7-18); BUN/Creat Ratio 14.2 RATIO (10-20); Calcium,Total 9.3 mg/dL (8.5-10.1); Chloride 108 mmol/L (98-107); Creatinine, Serum 3.18 mg/dL (0.55-1.02); EST Glomerular Filtration Rate 16 mL/min (>60); Est Glom Filt Rate - Afr Amer 19 mL/min (>60); Ferritin 65 ng/mL (8-252); Globulin 4.6 g/dL (2.2-4.2); Glucose 106 mg/dL (74-106); Iron 36 ug/dL (50-170); Iron Binding Capacity,Total 252 ug/dL (250-450); Magnesium 2.4 mg/dL (1.6-2.6); Phosphorus 3.4 mg/dL (2.5-4.9); Potassium 3.7 mmol/L (3.5-5.1); Protein, Total 8.1 g/dL (6.4-8.2); Sodium Level 141 mmol/L (136-145); Vitamin D,25 Hydroxy 44.4 ng/mL
[2020-01-15 08:35] LABS: Bacteria 2+ /hpf (None Seen); Red Blood Cells-Urine 0-5 SEEN /hpf (0-5); Squamous Epithelial Cells - UA 0-5 SEEN /hpf (5-10); White Blood Cells 50-100 SEEN /hpf (0-5)
== END ==
PROVIDERS: PCP Family Medicine; Referring Provider Internal Medicine Nephrology; Visit Provider Internal Medicine Nephrology
DX: Z48.22 Encounter for aftercare following kidney transplant (principal); N18.4 Chronic kidney disease, stage 4 (severe); D63.1 Anemia in chronic kidney disease
CPT/HCPCS: 36415; 80053; 81001; 82306; 82570; 82728; 83540; 83550; 83735; 83970; 84100; 84156; 85025

== ENCOUNTER → 2020-01-15 06:54 | Outpatient (CLI) | payer OTHER, SELFPAY ==
--- NOTE | 2020-01-15 12:48 | NEURO ---
NCS and/or EMG Patient Report Ordering Doctor: Lior Garber DATE OF SERVICE: 01/15/20 Miranda Segal presents for electrodiagnostic testing of the right upper limb. She reports intermittent numbness and tingling in the right hand, following the wrist fracture in October 2019. Electrodiagnostic findings: Right median motor nerve demonstrates normal distal latency, amplitude and conduction velocity. Normal right ulnar motor response, including conduction across the elbow. Normal median, ulnar and radial sensory responses. Normal median and ulnar F waves. Needle EMG, all muscles tested in the right upper limb showed no evidence of denervation with normal motor unit action potentials. Electrodiagnostic impression: This is a normal electrodiagnostic study of the right upper limb. There is no electrodiagnostic evidence for peripheral neuropathy. If there are any further questions, please do not hesitate to contact me.
== END ==
PROVIDERS: PCP Family Medicine; Referring Provider Orthopaedic Surgery; Visit Provider Orthopaedic Surgery
DX: S52.324A Nondisplaced transverse fracture of shaft of right radius, initial encounter for closed fracture (principal)
CPT/HCPCS: 95886; 95910

== ENCOUNTER → 2021-07-27 | Outpatient (CLI) | payer MEDICARE, BC, SELFPAY ==
--- NOTE | 2021-07-27 09:39 | RAD_ITS ---
STUDY: X-RAY - LEFT WRIST REASON FOR EXAM: Female, 61 years old. LEFT WRIST PAIN TECHNIQUE: 4 view(s) of the wrist were obtained. COMPARISON: None. FINDINGS: Normal visualized distal radius and ulna. Normal radiocarpal articulation. Normal distal radioulnar articulation. Normal carpal bones. Normal carpal articulations. There is degenerative arthrosis of the carpometacarpal articulation of the thumb. Normal second through fifth carpometacarpal articulations. Normal visualized metacarpal bones. The soft tissue structures are unremarkable. 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 Electronically Signed: Kolton Gilmore MD at 12:43 EDT ,
[2021-07-27 10:53] LABS: Anion Gap 11 (5-15); BUN 32 mg/dL (7-18); BUN/Creat Ratio 4.8 RATIO (10-20); Calcium,Total 8.9 mg/dL (8.5-10.1); Chloride 103 mmol/L (98-107); Cholesterol 244 mg/dL (200); Creatinine, Serum 6.68 mg/dL (0.55-1.02); EST Glomerular Filtration Rate 7 mL/min (>60); Est Glom Filt Rate - Afr Amer 8 mL/min (>60); Glucose 177 mg/dL (74-106); High Density Lipoprotein 46 mg/dL; Potassium 2.8 mmol/L (3.5-5.1); Sodium Level 138 mmol/L (136-145); Triglycerides 294 mg/dL; Very Low Density Lipoprotein 59 mg/dL (5-40)
[2021-07-27 12:58] LABS: Hemoglobin A1c 6.5 % (3.8-5.6)
== END | disposition home or self-care (01) ==
PROVIDERS: PCP Family Medicine; Visit Provider Family Medicine
DX: M25.532 Pain in left wrist (principal); R73.03 Prediabetes; R79.9 Abnormal finding of blood chemistry, unspecified
CPT/HCPCS: 36415; 73110; 80048; 80061; 83036

== ENCOUNTER → 2023-01-18 | Outpatient (CLI) | payer MEDICARE, SELFPAY ==
--- NOTE | 2023-01-18 07:59 | VDUE_ITS ---
Reason For Study: Pre op Right Lower Arm Left Arm Proximal Radial artery diameter 2.3 x 2.5 Left Brachial artery diameter 4.0 x 4.1 mm. mm. Left Brachial artery waveform is triphasic . Proximal Radial artery waveform is Lateral Brachial vein diameter 1.4 x 1.5 mm. triphasic . Medial Brachial vein diameter 1.5 x .16 mm. Proximal Lateral Radial vein diameter 0.7 x Coupon Manifest Clerk Vein is present. 0.9 mm. Coupon Manifest Clerk Vein measures 3.0 mm. Proximal Medial Radial vein diameter 1.0 x Cephalic Vein at proximal upper arm measures 1.0 mm. 2.9 x 3.1 mm. Distal Radial artery diameter 1.8 x 1.7 mm. Cephalic vein at proximal upper arm depth Distal Lateral Radial vein diameter 08 x 0.9 measures 31.4 mm. mm. Cephalic Vein at mid upper arm measures 3.5 Distal Medial Radial vein diameter 0.6 x 0.8 x 3.2 mm. mm. Cephalic vein at mid upper arm depth Proximal Ulnar artery diameter 3.9 x 3.2 mm. measures 20.8 mm. Proximal Ulnar artery waveform is Cephalic Vein distal upper arm measures 4.4 triphasic . x 4.4 mm. Proximal Lateral Ulnar vein diameter 0.8 x Cephalic vein at distal upper arm depth 1.2 mm. measures 11.8 mm. Proximal Medial Ulnar vein diameter 1.2 x Cephalic Vein proximal forearm measures 2.1 1.4 mm. x 2.2 mm. Distal Ulnar artery diameter 0.8 x 1.1 mm. Cephalic Vein at mid forearm measures 2.3 x Distal Lateral Ulnar vein diameter 0.7 x 0.7 2.4 mm. mm. Cephalic Vein at distal forearm measures 2.2 Distal Medial Ulnar vein diameter 0.5 x 0.7 x 2.2 mm. mm. Proximal Basilic vein measures 4.9 x 5.3 mm. Right Arm Proximal Basilic vein depth measures 35.1 Right Brachial artery diameter 3.1 x 2.9 mm. mm. Right Brachial artery waveform is Mid Basilic vein measures 4.6 x 4.9 mm. triphasic . Mid Basilic vein depth measures 23.4 mm. Lateral Brachial vein diameter 2.0 x 2.0 mm. Distal Basilic vein measures 3.1 x 2.9 mm. Medial Brachial vein diameter 2.2 x 2.0 mm. Distal Basilic vein depth measures 23.2 mm. Coupon Manifest Clerk Vein is present. Left Lower Arm Coupon Manifest Clerk Vein measures 2.1 mm. Proximal Radial artery diameter 2.1 x 1.9 Cephalic Vein at proximal upper arm measures mm. 3.6 x 3.7 mm. Proximal Radial artery waveform is Cephalic vein at proximal upper arm depth triphasic . measures 24.2 mm. Proximal Lateral Radial vein diameter 0.7 x Cephalic Vein at mid upper arm measures 3.0 0.7 mm. x 3.1 mm. Proximal Medial Radial vein diameter 1.0 x Cephalic vein at mid upper arm depth 1.1 mm. measures 29.4 mm. Distal Radial artery diameter 1.6 x 1.8 mm. Cephalic Vein distal upper arm measures 2.5 Distal Lateral Radial vein diameter 0.7 x x 2.7 mm. 0.7 mm. Cephalic vein at distal upper arm depth Distal Medial Radial vein diameter 0.8 x 0.7 measures 8.2 mm. mm. Cephalic Vein proximal forearm measures 1.6 Proximal Ulnar artery diameter 2.5 x 2.5 mm. x 1.6 mm. Proximal Ulnar artery waveform is Cephalic Vein at mid forearm measures 1.8 x triphasic . 1.9 mm. Proximal Lateral Ulnar vein diameter 1.9 x Cephalic Vein at distal forearm measures 1.5 1.8 mm. x 1.6 mm. Proximal Medial Ulnar vein diameter 1.6 x Proximal Basilic vein measures 4.4 x 4.5 mm. 1.7 mm. Proximal Basilic vein depth measures 24.5 Distal Ulnar artery diameter 1.2 x 1.4 mm. mm. Distal Lateral Ulnar vein diameter 0.6 x 0.9 Mid Basilic vein measures 4.9 x 4.6 mm. mm. Mid Basilic vein depth measures 17.9 mm. Distal Medial Ulnar vein diameter 0.7 x 0.7 Distal Basilic vein measures 3.2 x 3.4 mm. mm. Distal Basilic vein depth measures 9.8 mm. VL/Dialysis Vein Map PRE-OP BILAT Interpretation Summary Bilateral upper extremity deep and superficial veins patent with measurments ab ove. Bilateral upper extremity arteries patent with normal waveforms and measurement s above. Ordering Physician: HAKEEM PRINCE Referring Physician: Maciel Siu Performed By: Ailin Estevez RVT ???
== END | disposition home or self-care (01) ==
PROVIDERS: PCP Family Medicine
DX: Z01.818 Encounter for other preprocedural examination (principal); N18.6 End stage renal disease
CPT/HCPCS: 93985

== ENCOUNTER 2023-02-28 05:55 | Day surgery (SDC) | payer MEDICARE, SELFPAY ==
[2023-02-20 11:57] LABS: Hematocrit 32.4 % (37-47); Hemoglobin 10.3 g/dL (12.0-15.0); Mean Corp Hgb Conc 31.8 g/dL (32-36); Mean Corpuscular Hgb 31.7 pg (27.0-32.0); Mean Corpuscular Volume 99.7 fL (81-99); Mean Platelet Vol. 10.8 fl (6.2-12.0); Platelet Count 219 K/mm3 (150-450); RBC Distribution Width CV 12.9 % (11.6-14.6); RBC Distribution Width SD 47.3 fl (35.1-43.9); Red Blood Count 3.25 M/mm3 (4.2-5.4); White Blood Count 7.8 K/mm3 (4.4-11.0)
[2023-02-20 12:45] LABS: Anion Gap 10 (5-15); BUN 75 mg/dL (7-18); BUN/Creat Ratio 7.2 RATIO (10-20); Calcium,Total 8.4 mg/dL (8.5-10.1); Chloride 103 mmol/L (98-107); EST Glomerular Filtration Rate 4 mL/min (>60); Est Glom Filt Rate - Afr Amer 5 mL/min (>60); Glucose 101 mg/dL (74-106); Potassium 5.1 mmol/L (3.5-5.1); Sodium Level 137 mmol/L (136-145)
[2023-02-28 06:37] VITALS: BP 96/55; PULSE 70; RESP 16; TEMP 36.6; O2SAT 98; BMI 44.2
[2023-02-28] MEDS: 0.9% Normal Saline (500mL Bag) 500 ML 15 ML IV (06:40)
[2023-02-28] MEDS: Cefazolin 2 GM in 0.9% Normal Saline (100mL Bag) 100 ML IV (07:31)
--- NOTE | 2023-02-28 07:39 | HP.PCM_ITS ---
History and Physical Allergies venlafaxine HCl [From Effexor] Adverse Reaction (Intermediate, Verified 02/09/23 14:17) Other Medications bupropion HCl 150 mg 24 hr tablet, extended release 150 mg PO DAILY 06/02/15 [History Confirmed 02/09/23] fluoxetine 10 mg capsule 15 mg PO DAILY 06/02/15 [History Confirmed 02/09/23] cholecalciferol (vitamin D3) 25 mcg (1,000 unit) capsule 25 mcg PO DAILY 02/09/23 [History Confirmed 02/09/23] cinacalcet 60 mg tablet 60 mg PO DAILY 02/09/23 [History Confirmed 02/09/23] famotidine 20 mg tablet 20 mg PO DAILY PRN 02/09/23 [History Confirmed 02/09/23] ferric citrate 210 mg iron tablet (Auryxia) 210 mg PO TID 02/09/23 [History Confirmed 02/09/23] torsemide 100 mg tablet 100 mg PO DAILY 02/09/23 [History Confirmed 02/09/23] trazodone 50 mg tablet 150 mg PO QHS 02/09/23 [History Confirmed 02/09/23] vitamin B complex 1 cap PO DAILY 02/09/23 [History Confirmed 02/09/23] PFSH Medical History Acute rheumatoid arthritis Anxiety Arthritis Chronic kidney disease on chronic dialysis Surgical History H/O eye surgery H/O hernia repair (~2006) History of parathyroid surgery (~2002) Kidney transplant recipient (~1998) Family History Other CVA (cerebral vascular accident) Cancer Hypertension Social History Smoking Status: Former smoker HPI HPI HPI: ARIC PALACIO, is a 62 F who presents to the office today for evaluation for dialysis access creation. She initially went on to ESRD on peritoneal dialysis in the mid 90s due to HTN. She underwent renal transplant in 199 which functioned well for many years. A few years ago it went on to fail and she again was on PD. This became infected and she has since switched to HD via right IJ catheter. This has functioned well with no infection concerns. She actually feels better with HD and plans to continue rather than re-attempt PD. No arm or clavicle fracture/pacer/node dissection. Remote history right side PICC. Right handed ROS General General: Yes fatigue and weakness; No weight change, appetite, colon cancer or breast cancer HEENT HEENT: Yes eye surgery; No difficulty swallowing, eye injury, swollen glands or hoarseness Endo Endocrine: No thyroid disease, diabetes mellitus, thyroid cancer, Hair loss, heat intolerance or cold intolerance Skin Skin: No rash or changing moles Musc Musculoskeletal: Yes back problems and arthritis; No rheumatoid arthritis, gout or joint pain Cardio Cardiovascular: No murmur, pacemaker, heart disease, atrial fibrillation, high blood pressure, heart attack, heart stent, palpitations, shortness of breat with exertion or chest pain Psych Psychiatric: Yes depression; No anxiety or hearing voices Resp Respiratory: No shortness of breath, Yes sleep apnea, No cough, No COPD, No asthma, No emphysema and No wheezing Gastro Gastrointestinal: No abdominal pain, No nausea or vomiting, No diarrhea, No constipation, No blood in stool, No acid reflux, No hemorrhoids, No ulcers, No gallbladder problem and No black,tarry stools Nick Hematologic: No blood thinners, No blood disorders, No bleeding, No anemia and No blood clots Neuro Neurologic: No system reviewed and no additional complaints, except as documented, No as per HPI, No abnormal gait, No abnormal hearing, No abnormal movements, No abnormal speech, No behavioral changes, No burning sensations, No confusion, No convulsions, Yes disequilibrium, Yes dizziness, No localized weakness, No frequent falls, No headache(s), No lack of coordination, No loss of vision, No memory loss, Yes numbness, No other visual disturbances, No radicular pain, No restless legs, No sensory deficit, No syncope, Yes tingling, No tremo r(s), Yes weakness and No other Exam Const General: cooperative, healthy appearing, comfortable, no acute distress and well developed Nutritional Appearance: well nourished Orientation: alert, awake and oriented x3 HENMT Head: normocephalic and atraumatic Ears: hearing grossly normal bilaterally Nose: external nose normal Eyes General: appearance normal, both eyes and all related structures EOM: EOM intact bilaterally Neck Neck: normal visual inspection, full ROM, no lymphadenopathy and trachea midline Thyroid: thyroid normal Lymphatic: no lymphadenopathy noted Resp Effort & Inspection: normal respiratory effort, able to speak in complete sentences, symmetric chest movement, no audible wheezes, not labored, no stridor and no use of accessory muscles Cardio Rate: regular rate Rhythm: regular rhythm Pulses: brachial pulses present, radial pulses present, popliteal pulses present, posterior tibial pulses present and dorsalis pedis present Skin General: no rashes or lesions noted and no erythema Wounds: no wounds Neuro Cranial Nerves: CN's II-XI intact bilaterally and EOM intact bilaterally Speech: speech normal Gait: normal gait Motor: strength 5/5 throughout Sensory Exam: no sensory deficits noted Psych Appearance: grossly normal and well kempt Mental Status: mental status grossly normal Mood: congruent mood Speech and Movement: speech and movement normal Thought Content: normal Judgment: judgment good Coding Level of Care Code Off vis,new,level 4 Diagnoses ESRD (end stage renal disease) on dialysis N18.6; Z99.2 Assessment and Plan Assessment and Plan (1) ESRD (end stage renal disease) on dialysis: Status: Chronic Plan: -vein mapping reviewed, adequate bilateral upper cephalic and basilic -plan for left brach-cephalic
--- NOTE | 2023-02-28 09:28 | OP.PCM_ITS ---
Problems Associated Problem List Diagnoses (1) ESRD (end stage renal disease) on dialysis: Report of Operation Date of Procedure: 02/28/23 Pre-Operative Diagnosis: ESRD Post-Operative Diagnosis: same Surgery/Procedure Performed:: left brach-ceph fistula creation Surgeon: Isac Pickard Type of Anesthesia: Local and MAC Estimated Blood Loss (mL): 5 Description of Procedure: HPI: Patient is a 62-year-old female with end-stage renal disease currently on dialysis. She had preoperative vein mapping which revealed satisfactory left upper arm cephalic vein. She presents now for fistula creation. Description of procedure: Upon obtaining form consent and verification correct patient procedure site patient taken to the operating where she was positioned prepped and draped you sterile fashion. Time was performed and moderate sedation ministered by anesthesia. Ultrasound used to evaluate the cephalic vein was adequate in diameter throughout the upper arm and the close proximity to the brachial artery distal to the antecubital crease with an adequate appearing concrete form setter and finisher vein to create the fistula distal to the antecubital crease. Skin was anesthetized with 1% lidocaine and transverse incision made 1 fingerbreadth distal antecubital crease. Bovie left cautery was dissect down through subcutaneous tissue and self-retaining tractors put in position. Sharp dissection used to dissect free the cubital vein confluence with small sidebranch ligated with silk ties and divided. Once this was mobilized it was t hen retracted laterally and further dissection carried down to the brachial artery. Sharp dissection then used to dissect free the brachial artery proximally and a right angle was placed vessel loop. Further dissection was carried distally down onto the radial and ulnar arteries and a right angle used to place a vessel loop around each individually. Patient was in heparinized allowed to circulate for 3 minutes. The concrete form setter and finisher branch and a superficial forearm branch was then ligated distally in the field and then divided. They were then transposed over to the brachial artery with the more superficial branch having better reach so the concrete form setter and finisher branch was then ligated at the confluence with the cubital branches. The brachial artery was then occluded with Vesseloops longitudinal arteriotomy created 11 blade extended Ebrmudez scissors onto the origin of the radial artery. The cubital branch into the cephalic vein were then flushed with heparinized saline and allowed to dilate. There is then marked to maintain orientation and anastomosis performed using 6-0 Prolene running fashion. Prior to completing suture line vessels were backbled and flushed into the graft. After complete suture line clamps removed satisfactory stasis was noted. Is a palpable thrill in the cubital branch extending into the cephalic vein. There are also was continued palpable radial pulse in the wrist. The median cubital branch was small in caliber than the lateral but there was concern that this would shunt flow towards the basilic and not about the cephalic to mature so this median branch was ligated with silk ties. The incision was then inspected for hemostasis and heparin reversed with protamine. The incision was then closed with 3-0 Vicryl, 4 Monocryl, Dermabond. At the conclusion of case patient was awake from anesthesia taken recovery and anticipate discharge home.
[2023-02-28] MEDS: Lidocaine 1% (20 ml mdv) 20 ML Vial (09:29)
[2023-02-28] MEDS: Bupivacaine 0.25% 30 ML Vial (09:29)
[2023-02-28] MEDS: Heparin Injection (Vial) 5,000 UNIT/ML VIAL 5000 UNIT (09:32)
--- NOTE | 2023-02-28 09:32 | DCINST_ITS ---
Discharge Instructions Diet Discharge Diet: No restrictions Activity Lifting Restrictions: not > 20 lbs with left arm for 2 weeks Dressing / Incision Call your doctor if your incision/area has: Sudden Increased Bleeding, Increased Pain/ Swelling, Increased Redness and Foul Smelling Discharge Call your doctor if you observe: Fever of 101 or Higher Remove Dressing in: 2 days Cleanse incision/area with: Soap & Water and - (do not submerge incision for 2 weeks) Follow Up Care Test Results: Test results from this visit will be discussed in further detail at your follow- up appointment, if applicable. Discharge Plan Admission Attending Provider: Isac Pickard Primary Care Provider: CORRINE GARCIA Consulting Providers: Yuniel Izaguirre Discharge Orders/Prescriptions Prescriptions: New oxycodone 5 mg tablet 5 mg PO Q8H PRN (Reason: pain) 3 Days Qty: 9 0RF Continued torsemide 100 mg tablet 100 mg PO DAILY Rx Instructions: Vera Estrada.Sat famotidine 20 mg tablet 20 mg PO DAILY PRN (Reason: acid reflux) cholecalciferol (vitamin D3) 25 mcg (1,000 unit) capsule 25 mcg PO DAILY vitamin B complex Capsule 1 cap PO DAILY Auryxia 210 mg iron tablet 210 mg PO TID Rx Instructions: administer with a meal cinacalcet 60 mg tablet 60 mg PO DAILY fluoxetine 10 MG capsule 15 mg PO DAILY bupropion HCl 150 MG tablet extended release 24 hr 150 mg PO DAILY trazodone 50 mg tablet 150 mg PO QHS Referrals / Follow Up: CORRINE GARCIA DO [Primary Care Provider] - Disposition Disposition (needs filled in before D/C Order can be placed): Home, Self Care
[2023-02-28 09:52] VITALS: BP 96/55; BP 98/58; PULSE 78; RESP 16; TEMP 36.6; O2SAT 97
[2023-02-28 09:55] VITALS: BP 96/55; BP 97/62; PULSE 74; RESP 16; O2SAT 98
[2023-02-28 10:00] VITALS: BP 96/55; BP 99/48; PULSE 81; RESP 16; O2SAT 100
[2023-02-28 10:05] VITALS: BP 96/55; BP 99/60; PULSE 79; RESP 16; TEMP 36.4; O2SAT 100
[2023-02-28] MEDS: oxyCODONE 5 MG Tablet PO (10:34)
== END 2023-02-28 10:45 | disposition home or self-care (01) ==
LOC: SDC 05:56 → AC 05:56
PROVIDERS: Anesthesiology; PCP Family Medicine; Referring Provider Surgery Trauma Surgery; Visit Provider Surgery Trauma Surgery
PROC: (CPT 36821; principal; 2023-02-28 07:15)
DX: I12.0 Hypertensive chronic kidney disease with stage 5 chronic kidney disease or end stage renal disease (principal); Z99.2 Dependence on renal dialysis; N18.6 End stage renal disease; Z87.891 Personal history of nicotine dependence; Z90.49 Acquired absence of other specified parts of digestive tract; F41.9 Anxiety disorder, unspecified; Z99.89 Dependence on other enabling machines and devices; F32.A Depression, unspecified; K21.9 Gastro-esophageal reflux disease without esophagitis; G47.30 Sleep apnea, unspecified
CPT/HCPCS: 36821; 36415; 80048; 85027; J7040; J2405

== ENCOUNTER → 2023-05-17 | Outpatient (CLI) | payer MEDICARE, SELFPAY ==
--- NOTE | 2023-05-17 08:51 | AVDS_ITS ---
Reason For Study: ESRD LEFT Inflow, 211.5/115.7 cm/sec. Inflow, 1026 ml/min. Prox anastomosis, 327.6/206.2 cm/sec. Prox anastomosis, 1306 ml/min. Prox graft, 133.8/50.9 cm/sec. Prox graft, 1900 ml/min. Mid graft, 424.4/225.1 cm/sec. Mid graft, 2545 ml/min. Distal graft, 84.3/47.5 cm/sec. Distal graft, 961.1 ml/min. Outflow, 62.2/38.8 cm/sec. Outflow, 624.9 ml/min. VL/AV Fistula/Dialysis Graft Scan Interpretation Summary Patent left upper arm arterio-venous fistula with adequate flow volumes and guanakito meter. Increasing depth mid to proximal upper arm. Ordering Physician: Isac Pickard Referring Physician: Funmi Siu Performed By: Ailin Estevez RVT
== END | disposition home or self-care (01) ==
LOC: CVS 08:51
PROVIDERS: PCP Family Medicine; Referring Provider Surgery Trauma Surgery; Visit Provider Surgery Trauma Surgery
DX: N18.6 End stage renal disease (principal); Z99.2 Dependence on renal dialysis; Z48.812 Encounter for surgical aftercare following surgery on the circulatory system
CPT/HCPCS: 93990

== ENCOUNTER 2023-05-23 11:56 | Day surgery (SDC) | payer MEDICARE, SELFPAY ==
[2023-05-23] VITALS (8 sets, daily range): BP systolic 88–108; BP diastolic 40–54; PULSE 71–96; RESP 16; TEMP 36.4–36.8; O2SAT 90–97; BMI 45.0
[2023-05-23] MEDS: 0.9% Normal Saline (500mL Bag) 500 ML 15 ML IV (12:15)
[2023-05-23 13:03] LABS: Hematocrit 36.3 % (37-47); Hemoglobin 12.2 g/dL (12.0-15.0); Mean Corp Hgb Conc 33.6 g/dL (32-36); Mean Corpuscular Hgb 32.4 pg (27.0-32.0); Mean Corpuscular Volume 96.3 fL (81-99); Mean Platelet Vol. 11.1 fl (6.2-12.0); Platelet Count 208 K/mm3 (150-450); RBC Distribution Width CV 13.1 % (11.6-14.6); RBC Distribution Width SD 46.5 fl (35.1-43.9); Red Blood Count 3.77 M/mm3 (4.2-5.4); White Blood Count 7.1 K/mm3 (4.4-11.0)
[2023-05-23] MEDS: Cefazolin 2 GM in 0.9% Normal Saline (100mL Bag) 100 ML IV (13:08)
--- NOTE | 2023-05-23 13:14 | PCM.HP.BLA ---
History and Physical Details: Mrs. Segal presents for follow up after left brach-cephalic fistula creation 02/28. She has been doing well, no arm edema, hand pain/numbness/weakness. Currently using right IJ catheter without issues. Dialysis unit excited to use fistula soon. Objective Details: A&O x 3, NAD RRR +radial pulse +thrill; most pronounced at AC fossa, diminished cephalad Coding Level of Care Code Global Post Op Diagnoses Surgical aftercare, circulatory system Z48.812 [facility] Medical History (Updated 05/04/23 @ 14:[address] Isac Pickard MD) Acute rheumatoid arthritis Anxiety Arthritis Chronic kidney disease on chronic dialysis CPAP (continuous positive airway pressure) dependence Depression Dietary restriction Former smoker Gastric reflux History of edema History of peritoneal dialysis History of stress test Hypertension Injury of head and neck Post-menopausal Shortness of breath on exertion Sleep apnea Wears glasses Surgical History (Updated 02/17/23 @ 08:14 by Virginia Harley) H/O eye surgery H/O hernia repair (~2006) History of cholecystectomy History of colonoscopy History of parathyroid surgery (~2002) Kidney transplant recipient (~1998) Family History Other CVA (cerebral vascular accident) Cancer Hypertension Social History Smoking Status: Former smoker Assessment and Plan (No Qualifiers) Assessment and Plan (1) Surgical aftercare, circulatory system: Status: Chronic Plan: -fistula appears to have matured well, but suspect it runs deeper more proximal in arm -plan elevation
[2023-05-23 13:30] LABS: Anion Gap 11 (5-15); BUN 50 mg/dL (7-18); BUN/Creat Ratio 5.8 RATIO (10-20); Calcium,Total 9.2 mg/dL (8.5-10.1); Chloride 98 mmol/L (98-107); Creatinine, Serum 8.67 mg/dL (0.55-1.02); EST Glomerular Filtration Rate 5 mL/min (>60); Est Glom Filt Rate - Afr Amer 6 mL/min (>60); Estimated Creatinine Clearance 8.54 ml/min; Glucose 107 mg/dL (74-106); Potassium 4.2 mmol/L (3.5-5.1); Sodium Level 134 mmol/L (136-145)
[2023-05-23] MEDS: Lidocaine 1% (30 ml sdv) 30 ML Vial (13:42)
[2023-05-23] MEDS: Bupivacaine 0.25% 30 ML Vial (13:42)
[2023-05-23] MEDS: Heparin Injection (Vial) 5,000 UNIT/ML VIAL 5000 UNIT (13:50)
--- NOTE | 2023-05-23 15:24 | PCM.OPRPT ---
Problems Associated Problem List Diagnoses (1) ESRD (end stage renal disease) on dialysis: Report of Operation Date of Procedure: 05/23/23 Pre-Operative Diagnosis: prior left brach-cephalic fistula, unable to access due to depth Post-Operative Diagnosis: same Surgery/Procedure Performed:: transposition left brach-cephalic AVF Description of Surgical Findings:: +thrill, +radial pulse Surgeon: Isac Pickard Type of Anesthesia: Local and MAC Estimated Blood Loss (mL): 25 Description of Procedure: HPI: Patient is a 62-year-old female with a previous left brachiocephalic fistula creation that has matured nicely however the thrill diminishes beginning in the distal upper arm and palpable in the mid to upper arm. A duplex study revealed satisfactory flow volumes throughout however the fistula was very deep beginning in the distal upper arm unlikely to be in position satisfactory for cannulation. She is taken now for fistula transposition. Description of procedure: Upon obtaining informed consent and verification of correct patient procedure site patient was taken to the operating room where she was positioned prepped and draped in usual sterile fashion. Time was performed and deep sedation administered by anesthesia. Ultrasound was used to evaluate to the fistula and beginning approximately 2 fingerbreadths cephalad to the antecubital crease it was too deep for cannulation. It remained in a deep position all the way to proximal extent of the upper arm. There were 2 sizable branches in the fistula just above the antecubital crease which likely also were contributing to the diminished thrill. The skin overlying the fistula was then marked and anesthetized with 1% lidocaine. Longitudinal incision was made and Bovie electrocautery was dissect down through the subcutaneous tissue overlying the entirety of the extent of the fistula that was too deep for access. This length was approximately 15 cm total. Once the dissection was carried down to the vein and that was visualized sharp dissection was used to dissect free along the entirety of the length with sidebranches ligated with silk ties and divided. Once the entirety of the length of the fistula had been mobilized we assisted for simple elevation. There is a significant amount of adipose tissue to elevate over and the concern was that this be successful in creating a superficial position that could be accessed and the amount of subcutaneous adipose was too significant to get adequate fistula positioning with simple elevation. The vein was then marked to maintain orientation and a Harrison tunneler was used to tunnel lateral to the incision. The patient was then heparinized and allowed to circulate for 3 minutes. The fistula was then occluded with atraumatic clamps and divided just above the antecubital crease. This was then secured to the tunneler and pulled through the subcutaneous tunnel exiting adjacent to the transection point. End-to-end anastomosis was then performed with a 6-0 Prolene in four-quadrant fashion. Prior to completing suture line the inflow was flushed and the venous outflow flushed with heparinized saline. After completing suture line there was some size mismatch to the quadrants requiring repair sutures however otherwise with adequate hemostasis. There is a palpable thrill across the fistula anastomosis and throughout the upper arm. The Doppler signal in the fistula both proximal to and distal to the anastomosis was low resistant in nature and adequate for expected fistula Doppler signal. The incision was then inspected for hemostasis and closed with 2-0 Vicryl 3-0 Vicryl, 4 Monocryl and Dermabond for the skin. At the conclusion the case patient was awakened given from anesthesia taken recovery room with anticipated discharge to home
--- NOTE | 2023-05-23 15:27 | DCINST_ITS ---
Discharge Instructions Diet Discharge Diet: No restrictions Activity Lifting Restrictions: do not lieft >20 lbs with left arm for 3 weeks Additional Activity Instructions:: do not submerge incision for 3 weeks Dressing / Incision Call your doctor if your incision/area has: Sudden Increased Bleeding, Increased Pain/ Swelling, Increased Redness and Foul Smelling Discharge Call your doctor if you observe: Fever of 101 or Higher Remove Dressing in: 2 days Cleanse incision/area with: Soap & Water Follow Up Care Test Results: Test results from this visit will be discussed in further detail at your follow- up appointment, if applicable. Discharge Plan Admission Attending Provider: Isac Pickard Primary Care Provider: CORRINE GARCIA Discharge Orders/Prescriptions Prescriptions: New oxycodone 5 mg tablet 5 mg PO Q6H PRN (Reason: pain) 5 Days Qty: 20 0RF Continued famotidine 20 mg tablet 20 mg PO DAILY PRN (Reason: acid reflux) cholecalciferol (vitamin D3) 25 mcg (1,000 unit) capsule 25 mcg PO DAILY vitamin B complex Capsule 1 cap PO DAILY Auryxia 210 mg iron tablet 210 mg PO TID Rx Instructions: administer with a meal cinacalcet 60 mg tablet 60 mg PO DAILY fluoxetine 10 MG capsule 15 mg PO DAILY bupropion HCl 150 MG tablet extended release 24 hr 150 mg PO DAILY trazodone 50 mg tablet 150 mg PO QHS Referrals / Follow Up: CORRINE GARCIA DO [Primary Care Provider] - Disposition Disposition (needs filled in before D/C Order can be placed): Home, Self Care
== END 2023-05-23 17:25 | disposition home or self-care (01) ==
LOC: SDC 11:57 → AC 11:58
PROVIDERS: PCP Family Medicine; Referring Provider Surgery Trauma Surgery; Visit Provider Surgery Trauma Surgery
PROC: (CPT 36819; principal; 2023-05-23 13:20)
DX: Z48.812 Encounter for surgical aftercare following surgery on the circulatory system (principal); I12.0 Hypertensive chronic kidney disease with stage 5 chronic kidney disease or end stage renal disease; N18.6 End stage renal disease; Z82.3 Family history of stroke; Z99.2 Dependence on renal dialysis; Z87.891 Personal history of nicotine dependence; Z90.49 Acquired absence of other specified parts of digestive tract; Z98.51 Tubal ligation status; Z94.0 Kidney transplant status; Z87.19 Personal history of other diseases of the digestive system
CPT/HCPCS: 36819; 01844; 80048; 85027; A4648; J7040; J2405

== ENCOUNTER → 2023-05-30 | Outpatient (CLI) | payer MEDICARE, SELFPAY ==
--- NOTE | 2023-05-30 10:47 | AVDS_ITS ---
Reason For Study: Left arm pain and swelling, No thrill LEFT Inflow, 110.4/6.7 cm/sec. Inflow, 163.5 ml/min. Prox anastomosis, 30.1/7 cm/sec. Prox anastomosis, 31.1 ml/min. Cephalic vein portion of AVF is thrombosed. Brachial V and Basilic V are compressible. Radial artery, 80.1 cm/sec. Ulnar artery, 59.4 cm/sec. Preliminary report given to Bisi MENDES. VL/AV Fistula/Dialysis Graft Scan Interpretation Summary Occlusion of left cephalic vein fistula Ordering Physician: Isac Pickard Referring Physician: Funmi Siu Performed By: Ailin Estevez RVT
== END | disposition home or self-care (01) ==
LOC: CVS 10:46
PROVIDERS: PCP Family Medicine; Referring Provider Surgery Trauma Surgery; Visit Provider Surgery Trauma Surgery
DX: N18.6 End stage renal disease (principal); Z99.2 Dependence on renal dialysis; Z48.812 Encounter for surgical aftercare following surgery on the circulatory system
CPT/HCPCS: 93990

== ENCOUNTER 2023-06-01 09:21 | Day surgery (SDC) | payer MEDICARE, SELFPAY ==
[2023-06-01] VITALS (7 sets, daily range): BP systolic 96–105; BP diastolic 64–72; PULSE 66–98; RESP 16–18; TEMP 36.1–36.6; O2SAT 91–100; BMI 45.6
[2023-06-01] MEDS: 0.9% Normal Saline (500mL Bag) 500 ML 15 ML IV (09:49)
--- NOTE | 2023-06-01 11:26 | PCM.HP.BLA ---
History and Physical Allergies venlafaxine HCl [From Effexor] Adverse Reaction (Intermediate, Verified 05/30/23 11:31) Other Medications bupropion HCl 150 mg 24 hr tablet, extended release 150 mg PO DAILY 06/02/15 [History Confirmed 05/30/23] fluoxetine 10 mg capsule 15 mg PO DAILY 06/02/15 [History Confirmed 05/30/23] cholecalciferol (vitamin D3) 25 mcg (1,000 unit) capsule 25 mcg PO DAILY 02/09/23 [History Confirmed 05/30/23] cinacalcet 60 mg tablet 60 mg PO DAILY 02/09/23 [History Confirmed 05/30/23] famotidine 20 mg tablet 20 mg PO DAILY PRN acid reflux 02/09/23 [History Confirmed 05/30/23] ferric citrate 210 mg iron tablet (Auryxia) 210 mg PO TID 02/09/23 [History Confirmed 05/30/23] trazodone 50 mg tablet 150 mg PO QHS 02/09/23 [History Confirmed 05/30/23] vitamin B complex 1 cap PO DAILY 02/09/23 [History Confirmed 05/30/23] oxycodone 5 mg tablet 5 mg PO Q6H PRN pain 5 days #20 tabs 05/23/23 [Rx Confirmed 05/30/23] Subjective Details: Miranda Segal is a 62 y/o female who presents today with suspected thrombosed AVF. She is s/p AVF creation on 02/28/23 and s/p elevation on 05/24/23. She is recovered well from the procedure on 05/23. She denies any issues with the incision. She is receiving dialysis through her catheter and this has been going okay. She has been having low BP with dialysis so she says they have not been able to remove as much fluid as they want. At dialysis yesterday, no thrill was felt over the fistula. She had a fistula duplex just prior to her appt today. Objective Details: A&Ox3, NAD RRR Nonlabored respirations LUE AVF with no palpable thrill and no bruit LUE incision site is well-healing with surgical glue still intact. Coding Level of Care Code Global Post Op Diagnoses AV fistula thrombosis T82.868A ESRD (end stage renal disease) on dialysis N18.6; Z99.2 [facility] Medical History (Updated 05/31/23 @ 08:53 by LESIA Sanchez) Acute rheumatoid arthritis Anxiety Arthritis Chronic kidney disease on chronic dialysis CPAP (continuous positive airway pressure) dependence Depression Dietary restriction Former smoker Gastric reflux History of edema History of peritoneal dialysis History of stress test Hypertension Injury of head and neck Post-menopausal Rash Shortness of breath on exertion Sleep apnea Wears glasses Surgical History (Updated 05/10/23 @ 08:28 by Abby Baltazar) H/O eye surgery H/O hernia repair (~2006) History of cholecystectomy History of colonoscopy History of parathyroid surgery (~2002) History of tubal ligation Kidney transplant recipient (~1998) Family History Other CVA (cerebral vascular accident) Cancer Hypertension Social History Smoking Status: Former smoker Assessment and Plan (No Qualifiers) Assessment and Plan (1) AV fistula thrombosis: Status: Acute (2) ESRD (end stage renal disease) on dialysis: Status: Chronic Plan -thrombectomy, revision
[2023-06-01] MEDS: Cefazolin 2 GM in 0.9% Normal Saline (100mL Bag) 100 ML IV (11:28)
[2023-06-01] MEDS: Heparin Injection (Vial) 5,000 UNIT/ML VIAL 5000 UNIT ×2 (13:24→14:19)
[2023-06-01] MEDS: Bupivacaine Mpf 0.5% 30 ML VIAL (15:05)
[2023-06-01] MEDS: Lidocaine 1% (20 ml mdv) 20 ML Vial (15:05)
--- NOTE | 2023-06-01 15:18 | DCINST_ITS ---
Discharge Instructions Diet Discharge Diet: No restrictions Activity Lifting Restrictions: not greater than 20 lbs with left arm for 3 weeks Additional Activity Instructions:: Do not submerge incision for 3 weeks Dressing / Incision Call your doctor if your incision/area has: Sudden Increased Bleeding, Increased Pain/ Swelling and Increased Redness Remove Dressing in: 2 days Cleanse incision/area with: Soap & Water Follow Up Care Test Results: Test results from this visit will be discussed in further detail at your follow- up appointment, if applicable. Discharge Plan Admission Attending Provider: Isac Pickard Primary Care Provider: CORRINE GARCIA Discharge Orders/Prescriptions Prescriptions: Continued famotidine 20 mg tablet 20 mg PO DAILY PRN (Reason: acid reflux) cholecalciferol (vitamin D3) 25 mcg (1,000 unit) capsule 25 mcg PO DAILY vitamin B complex Capsule 1 cap PO DAILY Auryxia 210 mg iron tablet 420 mg PO TID Rx Instructions: administer with a meal cinacalcet 60 mg tablet 60 mg PO QHS fluoxetine 10 MG capsule 15 mg PO DAILY bupropion HCl 150 MG tablet extended release 24 hr 150 mg PO DAILY trazodone 50 mg tablet 150 mg PO QHS oxycodone 5 mg tablet 5 mg PO Q6H PRN (Reason: pain) 5 Days Qty: 20 0RF Referrals / Follow Up: CORRINE GARCIA DO [Primary Care Provider] - Disposition Disposition (needs filled in before D/C Order can be placed): Home, Self Care
--- NOTE | 2023-06-01 15:21 | OP.PCM_ITS ---
Report of Operation Date of Procedure: 06/01/23 Pre-Operative Diagnosis: thrombosed left brach-ceph fistula Post-Operative Diagnosis: same Surgery/Procedure Performed:: revision with thrombectomy of left arm AV fistula Surgeon: Isac Pickard Type of Anesthesia: General Estimated Blood Loss (mL): 50 Description of Procedure: HPI: Patient is a 62-year-old female with a previously created brachiocephalic fistula of the left upper extremity. This has matured nicely however given her body habitus the vessel was too deep for any efforts at access. She recently taken for this for superficialization of the fistula and was given the burden of adipose tissue that actually required transposition with retunneling and anastomosis end to end of the fistula. This initially appeared favorable and had a satisfactory thrill however approximately 1 week postop she lost the thrill in the fistula. Duplex confirmed occlusion of the entire length of the fistula. She is taken now for thrombectomy with efforts to salvage the [place] fistula with possible revision. Description of procedure: Upon obtaining informed consent and verification of correct patient procedure site patient taken to the operating she was placed in general esthesia. She was then positioned prepped and draped in usual sterile fashion a time was performed. Ultrasound used to evaluate the fistula the location of the previous anastomosis identified as well as location of significant drop in caliber at the superior aspect of the arm. 1 potential cause was likely due to the vessels under tension and the compression at this location due to acute angle. Transverse incision was then made over the area of the anastomosis and both electrocautery used to dissect down through subcutaneous tissue. Self-retaining retractor put in position and sharp section was dissect over to the fistula tunnel which was then dissected free and a right angle used to close vessel. We inspected the anastomosis and did not appear to have any significant stenosis or major caliber change. the patient was in heparinized distal phalanx after which time the anterior portion of the anastomosis was opened with an 11 blade and extended with Bermudez scissors. A 3 Ana was then advanced first proximally however we appeared to be catching on a valve and were unable to successfully extract much thrombus from the inflow direction and no pulsatile flow was obtained. Then advanced the Ana towards the outflow portion this copious thrombus was returned. We then upsized our artery Ana to a 6 Ana and withdrew further thrombus however we had some resistance when withdrawing the balloon suspected to be about. We then flushed distally while assessing ultrasound and there appeared to continue to be sign ificant intraluminal thrombus as well as no improvement in the caliber of the vessel at the area of diameter change in the upper arm. In order to obtain adequate inflow we made a counterincision over the previous anastomosis of the cephalic vein to the brachial artery. Bovie cautery was then used to dissect down soft and retractors put in position. Once the fistula was visualized sharp dissection was dissected free circumferentially and a running was placed vessel revealed a then created a transverse arteriotomy in the fistula the distal aspect of the wound significant acute thrombus was expressed. After we had brisk pulsatile inflow the Ana balloon was then advanced proximally to confirm clearance of any thrombus. There is now brisk pulsatile inflow with no visualized thrombus and there continue be a palpable radial ulnar pulses. We then advanced the Ana's towards the outflow and again met resistance in the similar location which was in the undisturbed portion of the fistula between the transposition anastomosis and the initial creation anastomosis. It was uncertain what was causing this resistance but it was unlikely be due to valves given we were passing the Ana with the directional flow. Between the uncertain nature of this component of the fistula and the suboptimal clearance of the distal vein without direct major revision with placement of cadaver graft would be appropriate so cadaver femoral-popliteal artery was then thawed per plastic parts fabricator instructions. Then made a longitudinal incision over the cephalic vein cephalad to the prior incision for transposition. Both electrocautery to dissect down through subcutaneous tissue and self-retaining retractors put in position. Once the cephalic vein was visualized it was found to be patent and compressible with no thrombus visualized. Sharp dissection was dissected free proximal and distal and a right angle used to place a vessel loop. A straight tunneler was then used to tunnel from the superior incision down to the antecubital crease incision. The fistula at the antecubital crease was then divided and the remnant distal annual oversewn with 6-0 Prolene. Cadaver vessel was then beveled to match the arterial inflow segment of fistula and anastomosis performed with four-quadrant technique 6-0 running Prolene. After completing suture line clamps removed and satisfactory hemostasis noted there is brisk pulsatile flow through the entirety of the graft. Side branches were noted to be hemostatic. The graft was then reclamped and secured to the tunneler. This was then marked to maintain orientation and pulled through to the superior incision. The cephalic vein was smaller than the cadaver graft and it was felt that an end to end anastomosis with significant bevel would provide the best caliber transition. The cephalic vein was then divided with a bevel and the inflow vein occluded with medium clips. The cadaver graft was then cut to length and beveled to match the cephalic vein anastomosis performed with four- quadrant 6-0 Prolene. Prior to completing suture on the vessel backbled and after putting suture laterally clamps removed satisfactory stasis was noted. There was low resistant Doppler signal throughout the graft and into the outflow vein and a palpable thrill throughout. The heparin was then reversed with protamine and Floseal topical hemostatic applied to the antecubital crease incision as well as the incision at the initial attempt at thrombectomy location. After satisfactory hemostasis was noted the incision was then closed with 3-0 Vicryl followed by 4 Monocryl and Dermabond for the skin. At the conclusion the patient did have a palpable radial pulse at the wrist and a palpable thrill in the graft. Dry sterile dressings were then applied and the patient was taken to the recovery room in the dissipate discharge to home.
[2023-06-01] MEDS: oxyCODONE 5 MG Tablet 10 MG PO (16:28)
== END 2023-06-01 18:03 | disposition home or self-care (01) ==
LOC: SDC 09:22 → AC 09:23
PROVIDERS: PCP Family Medicine; Referring Provider Surgery Trauma Surgery; Visit Provider Surgery Trauma Surgery
PROC: (CPT 36833; principal; 2023-06-01 10:40)
DX: T82.868A Thrombosis due to vascular prosthetic devices, implants and grafts, initial encounter (principal); N18.6 End stage renal disease; F41.9 Anxiety disorder, unspecified; F32.A Depression, unspecified; Z99.2 Dependence on renal dialysis; Z87.891 Personal history of nicotine dependence; Z79.899 Other long term (current) drug therapy; X58.XXXA Exposure to other specified factors, initial encounter
CPT/HCPCS: 36833; 01844; A4648; C1894; J7040; C1757; J2405

== ENCOUNTER 2023-10-25 06:54 | Day surgery (SDC) | payer MEDICARE, SELFPAY ==
[2023-10-24 09:07] VITALS: BMI 46.7
--- NOTE | 2023-10-25 07:46 | HP.PCM_ITS ---
HPI - General HPI Narrative ARIC PALACIO, is a 63 F who presents with prior LUE fistula that required elevation then revision with cadaver. Had been working well, however now with decreased flow volumes during sessions. [facility] Medical History Rash Wears glasses Post-menopausal Depression Injury of head and neck Gastric reflux Dietary restriction Former smoker CPAP (continuous positive airway pressure) dependence Shortness of breath on exertion History of stress test History of edema Hypertension History of peritoneal dialysis Chronic kidney disease on chronic dialysis Anxiety Arthritis Acute rheumatoid arthritis Home Medications ?Medication ?Instructions ?Recorded ?Last Taken ?Type cholecalciferol (vitamin D3) 25 25 mcg PO DAILY 02/09/23 05/22/23 History mcg (1,000 unit) capsule cinacalcet 60 mg tablet 60 mg PO QHS 02/09/23 05/22/23 History famotidine 20 mg tablet 20 mg PO DAILY PRN acid reflux 02/09/23 05/22/23 History ferric citrate 210 mg iron tablet 420 mg PO TID 02/09/23 05/22/23 History (Auryxia) trazodone 50 mg tablet 150 mg PO QHS 02/09/23 05/22/23 History vitamin B complex 1 cap PO DAILY 02/09/23 05/22/23 History Allergy/AdvReac Type Severity Reaction Status Date / Time venlafaxine HCl (From AdvReac Intermediate Other Verified 06/22/23 13:58 Effexor) Family History Other CVA (cerebral vascular accident) Cancer Hypertension Surgical History Hx of surgical procedure History of tubal ligation History of colonoscopy History of cholecystectomy H/O eye surgery History of parathyroid surgery (~2002) Kidney transplant recipient (~1998) H/O hernia repair (~2006) Social History Smoking Status: Former smoker ROS Constitutional Constitutional: Denies chills, fever(s), frequent falls, lethargy or weakness Eyes Eyes: Denies blind spots, change in vision or loss of vision ENT HEENT: Denies bleeding gums, hoarseness or sore throat Cardiovascular Cardiovascular: Denies abdominal pain, bluish discoloration of hand/feet, chest pain with activity, claudication, cold extremities, cyanosis, dyspnea on exertion, erythema on extremities, irregular heart rhythm, leg edema, leg ulcers, numbness in extremities or weakness in extremities Respiratory/Chest Respiratory/Chest: Denies cough, excessive phlegm production, shortness of breath at rest, shortness of breath with exertion or wheezing Gastrointestinal Gastrointestinal: Denies anorexia, change in stool character, constipation, diarrhea, melena or rectal bleeding Genitourinary Genitourinary: Denies dysuria or hematuria Musculoskeletal Musculoskeletal: Denies abnormal gait Integumentary Integumentary: Reports other Details: ; Denies erythema, non-healing lesions or wounds Neurologic Neurologic: Denies abnormal speech, focal weakness, headache(s), loss of vision, numbness, paresthesias or sensory deficit Hematologic/Lymphatic Hematologic/Lymphatic: Denies easy bleeding, easy bruising or lymphadenopathy Vital Signs Vital Signs Vital Signs: Weight Weight: 272 lb Body Mass Index (BMI) 46.7 Physical Exam Const alert, oriented x3, no apparent distress and healthy appearing General Appearance: cooperative; Negative for combative or lethargic Orientation / Consciousness: awake Exam Limitations: no limitations HEENT Head and Scalp: normocephalic and atraumatic Eyes EOMs intact bilaterally General Eye: normal appearance of both eyes Neck full ROM, no lymphadenopathy and thyroid normal General: trachea midline; Negative for lymphadenopathy or tenderness Thyroid: thyroid normal Resp normal respiratory effort, no use of accessory muscles and clear to auscultation bilaterally Effort and Inspection: Negative for labored, stridor or audible wheezes Cardio regular rate and regular rhythm Peripheral Pulses: brachial pulses present and radial pulses present Back/Spine Cervical Spine: cervical ROM normal Extremity full ROM, normal capillary refill and no clubbing, cyanosis or edema Skin no rashes or lesions noted and no wounds Neuro oriented x3, CN's II-XII intact bilaterally, no focal motor deficits and no sensory deficits noted Psych thought process normal, cooperative, affect normal, speech normal and activity/motor behavior normal Assessment & Plan Assessment/Plan (1) Dialysis AV fistula malfunction: QUALIFIERS: Encounter type: initial encounter Qualified Code(s): T82.590A - Other mechanical complication of surgically created arteriovenous fistula, initial encounter PLAN: -more pulsatile at antecubital fossa, diminished thrill distally -suspect stenosis of anastomosis of cadaver and [place] vein -fistulogram
--- NOTE | 2023-10-25 12:26 | PCM.OPRPT ---
Report of Operation Date of Procedure: 10/25/23 Pre-Operative Diagnosis: malfunction of AV graft Post-Operative Diagnosis: same Surgery/Procedure Performed:: Fistulagram with angioplasty/stent IVUS SVC, innominate vein, subclavian-axillary vein, brachial vein, graft, radial artery, brachial artery Surgeon: Isac Pickard Type of Anesthesia: Local and Sedation,Conscious Estimated Blood Loss (mL): 4 Description of Procedure: HPI: Patient is a 63-year female with a left upper arm AV graft placed to revise a thrombosed cephalic vein fistula. They have noted decreased flow volumes during dialysis sessions and she sent now for fistulogram. Description of procedure: Upon obtaining form consent and verification. Patient procedure site patient taken to the [employer] where she was positioned prepped and draped in usual sterile fashion. Timeouts performed conscious sedation administered Versed and fentanyl. The proximal portion of the circuit which consisted of the cephalic vein and then the end-to-end anastomosis to the cadaver graft was noted to be pulsatile but also very weak in nature. The suspicion was that there was at the very least inflow disease so skin overlying the graft was anesthetized and the vessel accessed under ultrasound guidance with micropuncture needle and wire in retrograde fashion. This was then exchanged for a short 6 [place] sheath through which hand-injection subtraction angiography was performed of the AV fistula arterial portion of the circuit. This revealed what appeared to be significant stenosis in the proximal portion of the nez perce AV fistula just beyond the anastomosis. A command 14 wire was then advanced through the sheath and utilizing a KMP catheter we are able to navigate the proximal anastomosis and ultimately advance our wire and catheter into the proximal brachial artery. This position further imaging was obtained which confirmed what appeared to be presence of stenosis just beyond the anastomosis. Patient was in heparinized ulcerative 3 minutes and the KMP catheter was withdrawn. Intravascular ultrasound probe was then advanced and recorded pullback was performed of the brachial artery, radial artery which was the site of anastomosis and the proximal half of the nez perce fistula and cadaver graft. This confirmed greater than 80% stenosis of the nez perce vein just beyond anastomosis. The 5 mm Serranator angioplasty balloon and then advanced over the wire and positioned centered on the lesion and then inflated to nominal for 3 minutes then deflated and repositioned. At the reinflation position the balloon was noted to have a perforation so the balloon was then fully deflated and withdrawn. Next a jb angioplasty balloon 5 x 20 was advanced in position and inflated to nominal for multiple inflations across the lesion. Finally a 6 x 40 [place] [employer] [place] paclitaxel coated balloon was advanced in position and inflated to nominal for 3 minutes then deflated withdrawn. The fascia was noted to have a more robust pulse but still was not normal as it had very minimal thrill component and the suspicion was that there is also an outflow component of the problem as well. Completion angiography and intravascular ultrasound probe evaluation confirmed significant improvement in the area of prior stenosis with now less than 40% stenosis. Given the location felt that stenting was not optimal and that no further intervention was warranted. We then performed subtraction angiography imaging of the venous outflow of the circuit to include the central system through to the superior vena cava. This revealed widely patent central system with no evidence of central obstruction or compression. There was a stenosis that was significant in the upper arm likely adjacent to the graft to nez perce cephalic vein anastomosis. We then redirected our sheath into antegrade fashion and advanced our wire to traverse the lesion. Intravascular sound probe was then advanced and recorded pullback performed on the central system from the superior vena cava to the sheath which confirmed 80% stenosis of the venous anastomosis. Given the location was felt that a covered stent was the most appropriate initial treatment so the lesion was angioplastied with a 5 mm x 20 angioplasty balloon for multiple inflations across his length and then a [place] Vi[place]ahn 6 mm x 5 cm was advanced in the position and deployed. This was then postdilated first with a 5 mm in the plastic lumen followed by 6 mm angioplasty balloon. Completion angiography confirmed satisfactory resolution of the stenosis with no extravasation dissection and brisk contrast transit. A nylon suture was then placed at the puncture site and the sheath withdrawn after which hemostasis obtained after 5 minutes of manual pressure. The patient then taken to the recovery area with anticipated discharge home.
== END 2023-10-25 10:45 | disposition home or self-care (01) ==
PROVIDERS: PCP Family Medicine; Referring Provider Surgery Trauma Surgery; Visit Provider Surgery Trauma Surgery
DX: T82.590A Other mechanical complication of surgically created arteriovenous fistula, initial encounter (principal); I87.2 Venous insufficiency (chronic) (peripheral); Z87.891 Personal history of nicotine dependence; I12.9 Hypertensive chronic kidney disease with stage 1 through stage 4 chronic kidney disease, or unspecified chronic kidney disease; Z82.3 Family history of stroke; N18.9 Chronic kidney disease, unspecified; Z98.51 Tubal ligation status; Z90.49 Acquired absence of other specified parts of digestive tract; Z94.0 Kidney transplant status
CPT/HCPCS: 36903; 37252; 37253; 76937; 99152; 99153; C1725; C1753; C1874; C2623; J7040; Q9967; C1769

== ENCOUNTER 2024-07-22 18:47 | Emergency (ER) | payer MEDICARE, SELFPAY ==
[2024-07-22 18:49] VITALS: BP 118/47; PULSE 80; RESP 22; TEMP 36.6; O2SAT 99
[2024-07-22 18:55] VITALS: BMI 47.5
--- NOTE | 2024-07-22 19:55 | EKG12_ITS ---
Test Reason : DYSRHYTHMIA Blood Pressure : */* mmHG Vent. Rate : 77 BPM Atrial Rate : 77 BPM P-R Int : 200 ms QRS Dur : 80 ms QT Int : 410 ms P-R-T Axes : 47 20 28 degrees QTcB Int : 463 ms Normal sinus rhythm Normal ECG Confirmed by Lior Moon ([id number]), editorial writer ANA BRANHAM ([id number]) on 07/23/2024 11:15:09 AM Referred By: Confirmed By: Lior Moon
--- NOTE | 2024-07-22 19:55 | ED.VIS.GI ---
HPI HPI - GI History of Present Illness Chief Complaint: Abd Pain Informant: patient Narrative Narrative: Patient is 64-year-old female with history of incisional disease on hemodialysis (Monday and Monday) presenting for an episode of abdominal pain. Patient states she finished her dialysis was driving home when she started have some discomfort in her stomach which was primary. The pain then progressed become more severe. She describes a sharp cramping sensation. She does not have dry heaves. She felt weak and lightheaded. She was lightheaded this is not abnormal for her after dialysis. She never had this abdominal pain before however. She called 911. She received a total of 200 cc of IV fluids prior to my evaluation she states now she is feeling better. She states her pain has almost completely resolved and she does have a mild discomfort in her epigastric region. She does have a history of prior , hernia repair and cholecystectomy. She denies any alcohol use. She states her balance is a normal for her and she denies any black or blood in her stool. She denies any sick contacts or new foods that could have caused a food poisoning. She denies associated chest pain. She does have chronic shortness of breath which is unchanged. No other complaints or concerns at this time. [facility] Medical History Rash Wears glasses Post-menopausal Depression Injury of head and neck Gastric reflux Dietary restriction Former smoker CPAP (continuous positive airway pressure) dependence Shortness of breath on exertion History of stress test History of edema Hypertension History of peritoneal dialysis Chronic kidney disease on chronic dialysis Anxiety Arthritis Acute rheumatoid arthritis Home Medications ?Medication ?Instructions ?Recorded ?Last Taken ?Type cholecalciferol (vitamin D3) 25 25 mcg PO DAILY 02/09/23 05/22/23 History mcg (1,000 unit) capsule cinacalcet 60 mg tablet 60 mg PO QHS 02/09/23 05/22/23 History famotidine 20 mg tablet 20 mg PO DAILY PRN acid reflux 02/09/23 05/22/23 History ferric citrate 210 mg iron tablet 420 mg PO TID 02/09/23 05/22/23 History (Auryxia) trazodone 50 mg tablet 150 mg PO QHS 02/09/23 05/22/23 History vitamin B complex 1 cap PO DAILY 02/09/23 05/22/23 History clopidogrel 75 mg tablet (Plavix) 75 mg PO DAILY #30 tabs 12/08/23 Unknown Rx Allergy/AdvReac Type Severity Reaction Status Date / Time venlafaxine HCl (From AdvReac Intermediate Other Verified 11/09/23 09:19 Effexor) Family History Other CVA (cerebral vascular accident) Cancer Hypertension Surgical History Hx of surgical procedure History of tubal ligation History of colonoscopy History of cholecystectomy H/O eye surgery History of parathyroid surgery (~2002) Kidney transplant recipient (~1998) H/O hernia repair (~2006) Social History Smoking Status: Former smoker ROS ROS ED Constitutional Constitutional ED: Reports other Details: Episode of lightheadedness ; Denies chills or fever(s) Cardiovascular Cardiovascular: Denies chest pain Respiratory/Chest Respiratory/Chest: Reports dyspnea and other Details: Chronic dyspnea Gastrointestinal Gastrointestinal: Reports abdominal pain and nausea; Denies constipation, diarrhea, melena or vomiting Musculoskeletal Musculoskeletal: Denies arthralgias, back pain or myalgias Neurologic Neurologic: Denies weakness Hematologic/Lymphatic Hematologic/Lymphatic: Denies easy bleeding or easy bruising EXAM Physical Exam Const Vital Signs: 07/22/24 18:49 07/22/24 20:18 07/22/24 21:00 Temperature 97.9 F Temperature Source Temporal Pulse Rate 80 78 77 Respiratory Rate 22 H 18 16 Blood Pressure 118/47 L 109/81 H 97/63 Blood Pressure Mean 70 90 74 Pulse Ox 99 98 99 Oxygen Delivery Method Room Air Room Air Room Air 07/22/24 21:22 Temperature 98.6 F Temperature Source Pulse Rate 71 Respiratory Rate 18 Blood Pressure 98/64 Blood Pressure Mean 75 Pulse Ox 97 Oxygen Delivery Method Positive well nourished and well developed General Appearance ED: well developed and NAD; Negative for pallor HEENT Reports moist mucous membranes Neck supple and no JVD Resp normal respiratory effort and clear to auscultation bilaterally Cardio regular rate, regular rhythm and no murmurs GI non-distended Auscultation: normoactive bowel sounds Palpation: soft and tender epigastric; Negative for guarding or rigid Extremity full ROM Extremity Narrative: AV fistula in the left upper arm. No active bleeding. General Extremety ED: Negative for edema General Extremity: Negative for edema Neuro moves all extremities Sensorium / Orientation: alert Psych mental status grossly normal and thought process normal Skin no wounds General Skin Exam: Negative for jaundice or pallor MDM MDM MDM Narrative Medical decision making narrative: Patient is a 64-year-old female with history of end-stage renal disease on hemodialysis presenting for an episode of ultimately severe abdominal pain with dry heaves and associated weakness/lightheadedness after dialysis today. She did have a full session. Differential includes hypovolemia, dialysis reaction, gastritis, arrhythmia, hypotension, hypoglycemia, pancreatitis or other electrolyte abnormalities. Patient is otherwise been in her normal state of health. She received 200 mL of fluid prior to my evaluation and states she is feeling much better now. Her pain is almost completely resolved. Lab including CBC, CMP, lipase and EKG are obtained given her episode. Workup is largely unremarkable and/or at her baseline. She does have an elevated creatinine which is consistent with her end-stage renal disease. Patient is given p.o. challenge and ambulate in the ER. She states that she is feeling well. Discussed with her that I am not sure the cause of her episode today but given that she is currently asymptomatic has a benign abdominal exam and vital signs are at her baseline (she states that she runs a low and her blood pressure 98/64 is normal blood pressure for her) will be discharged home. Patient given return precautions. Discharged home in stable condition peer Lab Data Attestation: I reviewed the patient's lab results. Labs: Laboratory Results - last 24 hr 07/22/24 18:28 WBC 9.0 RBC 3.91 L Hgb 13.4 Hct 38.9 MCV 99.5 H MCH 34.3 H MCHC 34.4 RDW Std Deviation 48.9 H RDW Coeff of Clara 13.2 Plt Count 224 MPV 10.9 Immature Gran % (Auto) 0.400 Neut % (Auto) 76.8 H Lymph % (Auto) 14.3 L [place] % (Auto) 6.4 Eos % (Auto) 1.5 Baso % (Auto) 0.6 Absolute Neuts (auto) 6.9 Absolute Lymphs (auto) 1.28 Nucleated RBC % 0 Sodium 132 L Potassium 3.3 Chloride 89 L Carbon Dioxide 25.4 Anion Gap 18 H BUN 19 Creatinine 5.02 H Estim Creat Clear Calc 14.85 L Est GFR (MDRD) Non-Af 9 L BUN/Creatinine Ratio 3.7 L Glucose 257 H Calcium 8.6 Total Bilirubin 0.39 AST 18 ALT 11 Alkaline Phosphatase 96 Total Protein 7.6 Albumin 4.1 Globulin 3.5 Albumin/Globulin Ratio 1.1 Lipase 35 Rhythm Strip Rhythm Strip: Sinus Rhythm Rate: 77 Ectopy: None EKG Initial EKG: Attestation: I personally reviewed and interpreted this EKG as follows: Interpretation: Sinus Rhythm Comments: Normal sinus rhythm rate of 77 bpm Normal axis Normal intervals No ST segment Discharge Plan Triage Chief Complaint: Abd Pain ED Provider: Chloé Valdes Dx/Rx/DC Orders Clinical Impression: Abdominal pain, epigastric, ESRD (end stage renal disease) on dialysis, Light-headed Instructions: ED Epigastric Pain Uncertain Cause Prescriptions: No Action famotidine 20 mg tablet 20 mg PO DAILY PRN (Reason: acid reflux) cholecalciferol (vitamin D3) 25 mcg (1,000 unit) capsule 25 mcg PO DAILY vitamin B complex Capsule 1 cap PO DAILY Auryxia 210 mg iron tablet 420 mg PO TID Rx Instructions: administer with a meal cinacalcet 60 mg tablet 60 mg PO QHS trazodone 50 mg tablet 150 mg PO QHS clopidogrel [Plavix] 75 mg tablet 75 mg PO DAILY Qty: 30 5RF Primary Care Provider: CORRINE GARCIA Referrals: CORRINE GARCIA DO [Primary Care Provider] - Activity Restrictions/Additional Instructions: Your workup today is relatively normal and at your baseline. The direct cause of your episode symptoms is not clear. You were given a small mount of IV fluids. Please follow-up with your telephonic rn. Return if you have progression or worsening your symptoms. Print Language: Czech Disposition Disposition: Home, Self Care Discharge Date/Time: 07/22/24 21:24
[2024-07-22 20:08] LABS: Absolute Lymphocyte Count 1.28 X10^3/uL (0.83-4.51); Absolute Neutrophil Count 6.9 X10^3/uL (2.0-7.7); Basophil# 0.05 X10^3/uL; Basophil% 0.6 % (0-1); Eosinophil# 0.13 X10^3/uL; Eosinophils% 1.5 % (0-5); Hematocrit 38.9 % (37-47); Hemoglobin 13.4 g/dL (12.0-15.0); Lymphocyte # 1.28 X10^3/ul (0.83-4.51); Lymphocyte % 14.3 % (19-41); Mean Corp Hgb Conc 34.4 g/dL (32-36); Mean Corpuscular Hgb 34.3 pg (27.0-32.0); Mean Corpuscular Volume 99.5 fL (81-99); Mean Platelet Vol. 10.9 fl (6.2-12.0); Monocyte# 0.57 X10^3/uL; Monocyte% 6.4 % (0-10); NRBC Flagged by Analyzer 0 % (0-5); Neutrophil # 6.89 X10^3/uL (2.7-7.7); Neutrophil % 76.8 % (47-70); Platelet Count 224 K/mm3 (150-450); RBC Distribution Width CV 13.2 % (11.6-14.6); RBC Distribution Width SD 48.9 fl (35.1-43.9); Red Blood Count 3.91 M/mm3 (4.2-5.4)
[2024-07-22 20:18] VITALS: BP 109/81; PULSE 78; RESP 18; O2SAT 98
[2024-07-22 20:25] LABS: ALB/GLOB Ratio 1.1 RATIO (0.9-2.4); AST(SGOT) 18 U/L (<=31); Alanine Aminotransfer ALT/SGPT 11 U/L (<=34); Albumin, Serum 4.1 g/dL (3.4-4.8); Alkaline Phosphatase 96 U/L (35-104); Anion Gap 18 (5-15); BUN 19 mg/dL (4-19); BUN/Creat Ratio 3.7 RATIO (10-20); Calcium,Total 8.6 mg/dL (7.6-11.0); Carbon Dioxide 25.4 mmol/L (21.0-32.0); Chloride 89 mmol/L (98-108); Creatinine, Serum 5.02 mg/dL (0.70-1.20); EST Glomerular Filtration Rate 9 (>60); Estimated Creatinine Clearance 14.85 ml/min (50-250); Globulin 3.5 g/dL (2.2-4.2); Glucose 257 mg/dL (70-99); Lipase 35 U/L (13-75); Potassium 3.3 mmol/L (3.3-5.1); Protein, Total 7.6 g/dL (5.9-8.4); Sodium Level 132 mmol/L (133-145); Total Bilirubin 0.39 mg/dL (0.00-1.30)
[2024-07-22 21:00] VITALS: BP 97/63; PULSE 77; RESP 16; O2SAT 99
[2024-07-22 21:22] VITALS: BP 98/64; PULSE 71; RESP 18; TEMP 37; O2SAT 97
== END 2024-07-22 21:24 | disposition home or self-care (01) ==
PROVIDERS: Emergency Provider Emergency Medicine; PCP Family Medicine; Visit Provider Emergency Medicine
DX: R10.13 Epigastric pain (principal); I12.0 Hypertensive chronic kidney disease with stage 5 chronic kidney disease or end stage renal disease; N18.6 End stage renal disease; Z99.2 Dependence on renal dialysis; R42 Dizziness and giddiness; Z87.891 Personal history of nicotine dependence; Z79.899 Other long term (current) drug therapy; Z90.49 Acquired absence of other specified parts of digestive tract; Z98.51 Tubal ligation status
CPT/HCPCS: 80053; 83690; 85025; 93005; 99285

== ENCOUNTER 2024-12-02 07:59 | Emergency (ER) | payer MEDICARE, SELFPAY ==
[2024-12-02 08:00] VITALS: BP 122/70; PULSE 89; RESP 18; TEMP 36.5; O2SAT 98
[2024-12-02 08:23] VITALS: BMI 45.8
[2024-12-02 09:00] VITALS: BP 120/68; PULSE 74; RESP 74; O2SAT 100
[2024-12-02 10:00] VITALS: BP 124/63; PULSE 72; RESP 18; O2SAT 98
[2024-12-02 11:54] VITALS: BP 109/79; PULSE 69; RESP 16; TEMP 36.4; O2SAT 94
== END 2024-12-02 11:55 | disposition home or self-care (01) ==
PROVIDERS: Emergency Provider Emergency Medicine; PCP Family Medicine; Visit Provider Emergency Medicine
DX: S05.12XA Contusion of eyeball and orbital tissues, left eye, initial encounter (principal); N18.6 End stage renal disease; I12.0 Hypertensive chronic kidney disease with stage 5 chronic kidney disease or end stage renal disease; S09.90XA Unspecified injury of head, initial encounter; S60.222A Contusion of left hand, initial encounter; Z99.2 Dependence on renal dialysis; I95.89 Other hypotension; S70.12XA Contusion of left thigh, initial encounter; Z87.891 Personal history of nicotine dependence; Y93.K9 Activity, other involving animal care; K21.9 Gastro-esophageal reflux disease without esophagitis; Z79.899 Other long term (current) drug therapy; F41.9 Anxiety disorder, unspecified; Z98.51 Tubal ligation status; Z90.49 Acquired absence of other specified parts of digestive tract; Z94.0 Kidney transplant status; W01.0XXA Fall on same level from slipping, tripping and stumbling without subsequent striking against object, initial encounter; R42 Dizziness and giddiness
CPT/HCPCS: 70450; 72170; 73130; 73552; 99282